=== PATIENT | female | born 1950 | race Caucasian/White ===

== ENCOUNTER → 2019-02-07 19:01 | Outpatient (CLI) | payer MEDICARE, OTHER ==
[~2019-02-07 19:01] MED LIST: ABILIFY10 MG PO; CELEBREX200 MG PO; COREG6.25 MG PO; CYCLOBENZAPRINE5 MG PO; CYMBALTA60 MG PO; DESMOPRESSIN A0.2 MG PO; FEXOFENADINE H180 MG PO; FLUTICASONE PRO16 GM NASAL; LISINOPRIL20 MG PO; PROTONIX40 MG PO; ROPINIROLE HCL0.5 MG PO; TRAZODONE HCL150 MG PO
[2019-03-06 07:44] VITALS: BMI 30.5
== END | disposition home or self-care (01) ==
LOC: D.LABREF 19:01
PROVIDERS: ATTEND Urology
DX: R31.9 Hematuria, unspecified (principal)

== ENCOUNTER → 2019-02-13 13:36 | Outpatient (CLI) | payer MEDICARE, OTHER ==
[2019-03-06 07:44] VITALS: BMI 30.5
== END | disposition home or self-care (01) ==
LOC: D.CT 13:36
PROVIDERS: ATTEND Urology
DX: R31.21 Asymptomatic microscopic hematuria (principal)

== ENCOUNTER 2019-03-06 07:10 | Day surgery (SDC) | payer MEDICARE, OTHER ==
[2019-03-05 11:20] LABS: HEMATOCRIT 38.8 % (36.0-48.0); HEMOGLOBIN 13.2 g/dL (12-16); MCH 30.7 pg (26.0-34.0); MCV 90.2 fL (80.0-100.0); MEAN PLATELET VOLUME 9.9 fL (7.4-10.4); RBC 4.3 10x6/uL (4.00-5.40); WBC 7.3 10x3/uL (4.8-10.8)
[~2019-03-06] VITALS: Ht 154.9 cm; Wt 73.0 kg
[2019-03-06 07:44] VITALS: BP 129/60; Ht 154.9 cm; Wt 73.0 kg
--- NOTE | 2019-03-06 11:45 | NUR ---
1130 UP TO BR VOIDS QS IV DC'D WITH CATH INTACT 1145 DC INSTS GIVEN VOICED UNDERSTANDING GETTING DRESSED.
--- NOTE | 2019-03-06 12:03 | OP ---
PATIENT NAME: CORNELIA WEBBER MEDICAL RECORD: [id number] :46 LOCATION:D.[facility] ADMISSION DATE: SURGEON: STEVEN MAJOR MD DATE OF OPERATION: 03/06/2019 SURGEON: Steven Major MD ANESTHESIA: TIVA by Aj English CRNA DIAGNOSES: Urge urinary incontinence, interstitial cystitis, microscopic hematuria. PROCEDURES: Cystoscopy, hydrodistention and intravesical Botox injection 100 units. FINDINGS: Vestibular tenderness. Trabeculated bladder without bladder tumors. Diffuse bladder inflammation with glomerulations. No bladder tumors. BLOOD LOSS: Minimal. CLINICAL HISTORY: This is a 68-year-old female with urge and stress urinary incontinence as well as microscopic hematuria. She tried Myrbetriq, which did not help. She had a CT scan of the abdomen and pelvis for hematuria and it did not show any abnormalities in the urinary system. Urine culture has shown mixed organisms. She required cystoscopy to complete the hematuria workup. As well she has symptoms of intractable urge incontinence and possibly interstitial cystitis. We will treat those conditions as we see them. SHE IS ALLERGIC TO PENICILLIN. She was given Levaquin IV helper steel fabrication to the OR. DESCRIPTION OF PROCEDURE: The patient was given IV sedation. She was placed in the lithotomy position and prepped and draped. A 21-Lao cystoscope was placed into the bladder. Even just touching the patient's periurethral area caused her to react strongly. Therefore, she had to be given more sedation in order to allow the scope to be placed. Going into the bladder, there are no bladder tumors seen. The bladder is trabeculated indicative of overactivity and possibly bladder outlet obstruction. No bladder tumors were seen. I decided to perform hydrodistention with 600 mL of bladder volume for at least 2 minutes. While this was being done, a significant amount of bladder bleeding was noted from glomerulations. At 10 different locations while the bladder was still distended, I injected 1 mL of Botox solution. Each milliliter of Botox solution has 10 units of Botox dissolved in it. The ureteral orifices and the trigone were spared. She has single ureteral orifices bilaterally. The bladder was then emptied through the scope and the scope was removed. I will see her in followup in 2 weeks' time to check on her response. TRANSINT:[id number] Voice Confirmation ID: [id number] DOCUMENT ID: [id number] OPERATIVE REPORT [id number] CORNELIA WEBBER ROBERT S MD at 1203 CC: [id number] DICTATION DATE: 03/06/19 1053 VEHICLE GLASS TECHNICIAN: 03/06/[address] [facility] 03/06/19 [place] [id number] [place] [id number]
== END 2019-03-06 11:50 | disposition home or self-care (01) ==
LOC: D.OPS 07:10 → D.PAN 10:05 → D.OPS 10:05 → D.PAN 10:40 → D.OPS 11:00
PROVIDERS: Anesthesiology; ATTEND Urology
DX: N39.41 Urge incontinence (principal); N30.10 Interstitial cystitis (chronic) without hematuria; R31.29 Other microscopic hematuria

== ENCOUNTER → 2019-03-21 17:58 | Outpatient (CLI) | payer MEDICARE, OTHER ==
[2019-03-06 07:44] VITALS: BMI 30.5
[2019-03-27 20:12] LABS: AEROBE ID Final report (()); RESULT 1 Aerococcus urinae (())
== END | disposition home or self-care (01) ==
LOC: D.LABREF 17:58
PROVIDERS: ATTEND Urology
DX: R82.90 Unspecified abnormal findings in urine (principal)

== ENCOUNTER 2019-05-04 14:01 | Emergency (ER) | payer MEDICARE, OTHER ==
[~2019-05-04] VITALS: Ht 154.9 cm; Wt 70.0 kg
[2019-05-04 14:09] VITALS: Ht 154.9 cm; Wt 70.0 kg
[2019-05-04 14:43] LABS: BASOPHILS 0.3 % (0-2); EOSINOPHILS 1.1 % (0-7); HEMATOCRIT 39.7 % (36.0-48.0); HEMOGLOBIN 14.3 g/dL (12-16); IMMATURE GRANULOCYTES 0.1 % (0-5); LYMPHOCYTES 18.6 % (15-50); MCH 31.4 pg (26.0-34.0); MCV 87.1 fL (80.0-100.0); MEAN PLATELET VOLUME 10.5 fL (7.4-10.4); MONOCYTES 14.6 % (2-11); NEUTROPHILS 65.3 % (40-80); PLATELET COUNT 179 10x3/uL (130-400); RBC 4.56 10x6/uL (4.00-5.40); RDW 13.9 % (11.5-14.5); WBC 7.3 10x3/uL (4.8-10.8)
[2019-05-04 14:56] LABS: APTT 25.8 SECONDS (22.8-39.4); INR 1.02 (0.85-1.17); PROTIME 12.9 SECONDS (11.6-15.0)
[2019-05-04 15:01] LABS: CALC OSMOLALITY 257 mosm/kg (275-300); CALCIUM 9.7 mg/dL (8.5-10.1); CARBON DIOXIDE 28.1 mmol/L (21.0-32.0); CHLORIDE - SERUM 91 mmol/L (98-107); CREATININE - SERUM 0.8 mg/dL (0.6-1.3); GLUCOSE 97 mg/dL (74-106); POTASSIUM - SERUM 3.9 mmol/L (3.5-5.1); SODIUM 129 mmol/L (136-145); UREA NITROGEN 11 mg/dL (7-18); eGFR NON AFRICAN AMERICAN 75 mL/min (90-120)
[2019-05-04] MEDS ORDERED: OXYBUTYNIN CHLOR5 M1 PO (15:04)
[2019-05-04] MEDS ORDERED: ALBUTEROL SULF8.5 GM INH (15:05)
[2019-05-04] MEDS ORDERED: ALENDRONATE SOD40 MG PO (15:06)
[2019-05-04] MEDS ORDERED: CIPRO500 MG PO (15:06)
[2019-05-04 15:17] LABS: ALBUMIN 4.1 g/dL (3.4-5.0); ALKALINE PHOSPHATASE 79 U/L (46-116); ALT (SGPT) 21 U/L (10-68); BILIRUBIN - TOTAL 0.76 mg/dL (0.2-1.3); CKMB 0.5 U/L (0.0-3.6); CREATINE KINASE 49 UL (21-215); MAGNESIUM - SERUM 1.8 mg/dL (1.8-2.4); PROTEIN - SERUM 7.7 g/dL (6.4-8.2)
[2019-05-04 15:21] LABS: TROPONIN-I < 0.017 ng/mL (0.000-0.060)
[2019-05-04 16:42] LABS: APPEARANCE CLEAR (CLEAR); BILIRUBIN NEGATIVE (NEGATIVE); COLOR YELLOW (YELLOW); GLUCOSE NEGATIVE (NEGATIVE); KETONE NEGATIVE (NEGATIVE); NITRITE NEGATIVE (NEGATIVE); PROTEIN NEGATIVE (NEGATIVE); UROBILINOGEN NORMAL (NORMAL)
[2019-05-04 16:46] LABS: BACTERIA MODERATE /hpf (NEGATIVE); RED CELLS - URINE 0-5 /hpf (0-5); YEAST >1+ /hpf (NONE SEEN)
[2019-05-04] MEDS ORDERED: SMZ-TMP DS 800-1 TAB PO (17:23)
[2019-05-04 18:22] VITALS: BP 125/58
== END 2019-05-04 18:23 | disposition home or self-care (01) ==
LOC: D.ER 14:01
PROVIDERS: Family Medicine
DX: N39.0 Urinary tract infection, site not specified (principal); I10 Essential (primary) hypertension; R42 Dizziness and giddiness; R53.1 Weakness

== ENCOUNTER 2020-07-10 10:07 | Inpatient (IN) | payer MEDICARE, OTHER ==
[2020-07-09 13:34] LABS: BILIRUBIN NEGATIVE (NEGATIVE); KETONE NEGATIVE (NEGATIVE); NITRITE POSITIVE (NEGATIVE)
[2020-07-09 13:38] LABS: BACTERIA MANY HPF (NONE SEEN); SQUAMOUS EPITHELIAL 0-5 HPF (0-4)
[2020-07-09 13:45] LABS: CALC OSMOLALITY 250 mosm/kg (275-300); CALCIUM 8.8 mg/dL (8.5-10.1); CARBON DIOXIDE 27.3 mmol/L (21.0-32.0); CHLORIDE - SERUM 93 mmol/L (98-107); CREATININE - SERUM 0.7 mg/dL (0.6-1.3); GLUCOSE 86 mg/dL (74-106); POTASSIUM - SERUM 4.2 mmol/L (3.5-5.1); SODIUM 125 mmol/L (136-145); UREA NITROGEN 12 mg/dL (7-18); eGFR NON AFRICAN AMERICAN 87 mL/min (90-120)
[2020-07-09 13:57] LABS: APTT 22.1 SECONDS (22.8-39.4); INR 1.1 (0.85-1.17); PROTIME 13.1 SECONDS (11.6-15.0)
[~2020-07-10] VITALS: Ht 154.9 cm; Wt 70.9 kg
--- NOTE | ~2020-07-10 | OP ---
PATIENT NAME: CORNELIA WEBBER MEDICAL RECORD: [id number] :46 LOCATION:D[facility] ADMISSION DATE:07/14/20 SURGEON: GWEN LOPEZ MD DATE OF OPERATION: 07/14/2020 PREOPERATIVE DIAGNOSIS: Osteoarthritis, left knee. POSTOPERATIVE DIAGNOSIS: Osteoarthritis, left knee. PROCEDURE PERFORMED: Left total knee arthroplasty. INDICATIONS FOR THE PROCEDURE: Ms. Webber is a 70-year-old female with history of left knee pain and arthritis. Her symptoms have been getting progressively worse and are beginning to affect her mobility. She has elected to proceed with the surgery for left total knee arthroplasty. Risks, benefits and alternatives of surgery were discussed with the patient and consent was obtained. DESCRIPTION OF PROCEDURE: The patient was met in the holding area where her identity and confirmation of the procedure was performed. Left lower extremity was marked. She was taken to the operating room where she was placed supine on the operating table and anesthesia was administered. A tourniquet was applied to the left thigh and the left leg was prepped and draped in a sterile fashion. The patient received preoperative antibiotics as well as TXA and a timeout was performed before initiating the case. On initiation of the case, the leg was exsanguinated and the tourniquet was raised. Total tourniquet time was 120 minutes. Medial parapatellar approach was utilized for our exposure. The knee was placed into flexion. Incision was made over the anterior aspect of the knee, dissected down to the extensor mechanism. The quad tendon was then split along its medial border curving medially around the patella, extending down the medial border of the patellar tendon. The knee was then taken into extension. Tissue from the posterior fat pad of the patella and over the anterior distal femur was excised. Flat tissue off the medial tibial plateau was elevated and a portion of the medial meniscus was excised. Patella was then everted. The knee was placed back into flexion. There was noted to be significant wear of the lateral femoral condyle with the grooves in the bone of the condyle and the tibial plateau. The Becker's line was marked and the cruciate ligaments were excised. We then drilled for our femoral tunnel and placed our intramedullary femoral guide. Distal femoral cutting block was then pinned into position. Our distal femur cut was completed and the femur was sized to a size 2. The 4-in-1 cutting block was attached and pinned into place. We then made our anterior, posterior and chamfer cuts and on removing the bone, the edges near the condyles, both medial and lateral, began to peel. We therefore elected to proceed with a stemmed implant. We reamed up sequentially to a size 16, placed a 100-mm stem femoral implant. Distal femur and 4-in-1 cuts were repeated using the revision guides. We then placed the trial for a box cut and our box cut was completed using a reciprocating saw. We then turned our attention to the tibia. The extramedullary guide was placed and adjusted for alignment. The cutting block was then pinned into position. We again checked our alignment. We were pleased with its positioning. Our tibial cut was then completed taking 2-mm off the lateral tibial plateau. The bony pieces were removed. The remainder of the medial and lateral menisci were also removed. We then sized our tibia to a size 3 and prepared it using a reamer and punch. A 12 x 100 mm cemented tibial stem was placed to provide extra stability as well. The tibia and femur were trialed and beginning at the size 11, going up to a size 13, at which point we had good fit and stability throughout range of motion. We then turned our attention to OPERATIVE REPORT [id number] WEBBER,CORNELIA the patella. Towel clips were placed at the superior and inferior poles and a caliper was used to measure the width of the patella. Then, the patella was then cut to the floor of the lateral facet. It was sized to a size 31 and drilled. Knee was repositioned in flexion and our trial components were removed. The laminar blending supervisor was then inserted. Osteophytes were removed from the posterior aspect of the distal femur. Knee was then irrigated thoroughly with saline. Joint solution was injected around the capsule, proximal tibia and the distal femur. The bony ends were then dried and our final components were cemented into place. Knee was held in flexion as our components were cemented and excess cement was removed throughout this process. Our trial poly was placed and the knee was placed into full extension while the cement was allowed to dry. The patella was held with the patellar clamp. Once the cement was dry, it was again taken through range of motion and felt to have good stability with the size 13 poly and our final size 13 posterior stabilized plus poly was inserted and tapped into position. It was again taken through range of motion and had good fit and stability. The knee was irrigated thoroughly with saline. A drain was placed in the lateral gutter. Extensor mechanism was then closed with #1 Vicryl suture. The subcutaneous tissues were closed with 2-0 Vicryl and the skin was closed with loan. A sterile dressing was placed. The patient was turned back over to anesthesia where she was awakened, extubated, and taken to recovery room in stable condition. POSTOPERATIVE PLAN: The patient is going to be admitted for routine postoperative care. She will receive 24 hours postoperative antibiotics and will be started on DVT prophylaxis tomorrow. Physical therapy will be consulted to assist with mobility, weightbearing as tolerated to left lower extremity. PLAN: Home with home health physical therapy. COMPLICATIONS: None. ESTIMATED BLOOD LOSS: 200 mL. ANESTHESIA: General with peripheral nerve block. TRANSINT:[id number] Voice Confirmation ID: [id number] DOCUMENT ID: [id number] GWEN LOPEZ MD CC: [id number] DICTATION DATE: 07/14/20 1143 BATTERY MECHANIC: 07/14/20 1531 ADM IN [place] [id number] [place] [id number]
[~2020-07-10 10:07] MED LIST changes: +ALBUTEROL SULF8.5 GM INH; +ALENDRONATE SOD40 MG PO; +CIPRO500 MG PO; +LEXAPRO5 MG PO; +OXYBUTYNIN CHLOR5 M1 PO; +SMZ-TMP DS 800-1 TAB PO; +ULTRAM50 MG PO
[2020-07-14 07:02] LABS: BASOPHILS 0.7 % (0-2); EOSINOPHILS 5.3 % (0-7); HEMATOCRIT 36.7 % (36.0-48.0); HEMOGLOBIN 13.4 g/dL (12-16); IMMATURE GRANULOCYTES 0.2 % (0-5); LYMPHOCYTES 31.6 % (15-50); MCH 30.4 pg (26.0-34.0); MCHC 36.5 g/dL (31.0-37.0); MCV 83.2 fL (80.0-100.0); MEAN PLATELET VOLUME 9.6 fL (7.4-10.4); MONOCYTES 13.6 % (2-11); NEUTROPHILS 48.6 % (40-80); PLATELET COUNT 128 10x3/uL (130-400); RBC 4.41 10x6/uL (4.00-5.40); RDW 12.3 % (11.5-14.5); WBC 4.1 10x3/uL (4.8-10.8)
[2020-07-14 07:08] VITALS: BP 155/64; BMI 28.4
[2020-07-14] MEDS ORDERED: BACTRIM 400-801 TAB PO (07:16)
[2020-07-14 07:44] LABS: BILIRUBIN NEGATIVE (NEGATIVE); KETONE NEGATIVE (NEGATIVE); NITRITE NEGATIVE (NEGATIVE)
[2020-07-14 12:06] VITALS: BP 105/78
--- NOTE | 2020-07-14 12:30 | NUR ---
PT ARIIVED TO FLOOR VIA BED, SPOUSE AT BEDSIDE, PT VERY SLEEPY, VITALS WNL, PEDAL PULSES PRESENT, MOVEMENT IN BILATERAL EXTREMITIES SLIGHTLY WEAKER ON THE RIGHT SIDE
--- NOTE | 2020-07-14 15:03 | NUR ---
PT RESTING COMFORTABLY, NO SIGNS OF DISTRESS, PEDAL PULSES HAVE REMAINED INTACT, SCD'S IN PLACE AND RUNNING, REQUESTED PT TO BRING UP AN CPM MACHINE
[2020-07-14 16:51] VITALS: BP 131/68
[2020-07-14 21:33] VITALS: BP 111/54
[2020-07-15 04:10] VITALS: BP 118/45; BMI 29.5
[2020-07-15 05:15] VITALS: BP 154/67
[2020-07-15 05:54] LABS: BASOPHILS 0 % (0-2); EOSINOPHILS 0 % (0-7); HEMATOCRIT 29.5 % (36.0-48.0); IMMATURE GRANULOCYTES 0.4 % (0-5); LYMPHOCYTE ABS# 0.96 10x3/uL (1.18-3.74); MCH 29.8 pg (26.0-34.0); MCHC 35.6 g/dL (31.0-37.0); MCV 83.8 fL (80.0-100.0); MEAN PLATELET VOLUME 9.7 fL (7.4-10.4); NEUTROPHIL ABS# 9.83 10x3/uL (1.56-6.13); NEUTROPHILS 81.6 % (40-80); PLATELET COUNT 151 10x3/uL (130-400); RDW 12.4 % (11.5-14.5)
[2020-07-15 06:08] LABS: ALBUMIN 3.3 g/dL (3.4-5.0); ANION GAP 10.3 mmol/L (8-16); BILIRUBIN - TOTAL 0.8 mg/dL (0.2-1.3); CARBON DIOXIDE 23.4 mmol/L (21.0-32.0); CREATININE - SERUM 1.1 mg/dL (0.6-1.3); POTASSIUM - SERUM 4.7 mmol/L (3.5-5.1); PROTEIN - SERUM 5.9 g/dL (6.4-8.2)
[2020-07-15 06:21] LABS: HEMOGLOBIN 10.5 g/dL (12-16); RBC 3.52 10x6/uL (4.00-5.40); WBC 12.1 10x3/uL (4.8-10.8)
--- NOTE | 2020-07-15 07:23 | NUR ---
Patient had a critical NA of 117 notified Alan Yusuf and he ordered normal saline at 100ml/hr, fluid restriction of 1200ml and no free water.
[2020-07-15 07:43] VITALS: BP 170/62
--- NOTE | 2020-07-15 10:43 | NUR ---
Patient Name: CORNELIA WEBBER Admission Status: Elective Accout number: [id number] Admission Date: 07-14-2020 : 1950 Admission Diagnosis: Attending: TRAV Current LOS: 1 Anticipated DC Date: Planned Disposition: Home with Home Health Primary Insurance: MEDICARE A & B Discharge Planning Comments: CM met with patient to complete initial dc planning assessment. CM educated patient on the CM role and verbal consent given by patient to complete assessment. Patient lives at home with her where she states she is independent with his care. At discharge patient plans to return home and feels this is a safe discharge. She has stairs at home, but will not use them. CM discussed availability of home health, rehab services, and medical equipment. She will need home health at home & does not care who we she uses. She will also need a walker and BSC when she is discharged. FELICITAS signed and placed on chart. IMM also signed and went over. I will order the DME from [facility] & contact to see who can accept this patient. Patient denied known discharge needs at this time. CM will continue to follow and will assist as needed with dc plans/needs Development Mgr: Delia Nunez
[2020-07-15 12:35] VITALS: BP 168/84
[2020-07-15 14:21] VITALS: Ht 154.9 cm; Wt 70.9 kg
[2020-07-15 14:40] LABS: ANION GAP 12.8 mmol/L (8-16); CALCIUM 7.8 mg/dL (8.5-10.1); CARBON DIOXIDE 22.8 mmol/L (21.0-32.0); POTASSIUM - SERUM 4.6 mmol/L (3.5-5.1)
[2020-07-15 14:44] LABS: CREATININE - SERUM 1.4 mg/dL (0.6-1.3)
[2020-07-15 15:00] VITALS: BP 105/60
[2020-07-15 17:46] LABS: INR 1.35 (0.85-1.17); PROTIME 15.5 SECONDS (11.6-15.0)
[2020-07-15 21:11] VITALS: BP 173/65
[2020-07-15 22:52] LABS: POTASSIUM - URINE 32.2 MMOL/L (12.0-62.0)
[2020-07-16 04:37] VITALS: BP 186/82
[2020-07-16 05:35] LABS: HEMATOCRIT 25.4 % (36.0-48.0); HEMOGLOBIN 8.9 g/dL (12-16); LYMPHOCYTES 9.1 % (15-50); MCH 29.9 pg (26.0-34.0); MCV 85.2 fL (80.0-100.0); MEAN PLATELET VOLUME 10.1 fL (7.4-10.4); NEUTROPHILS 80.9 % (40-80); RBC 2.98 10x6/uL (4.00-5.40); RDW 12.5 % (11.5-14.5)
[2020-07-16 05:36] LABS: PLATELET COUNT 103 10x3/uL (130-400); WBC 7.3 10x3/uL (4.8-10.8)
[2020-07-16 05:51] LABS: BILIRUBIN - TOTAL 0.67 mg/dL (0.2-1.3); CALCIUM 7.9 mg/dL (8.5-10.1); CARBON DIOXIDE 23.7 mmol/L (21.0-32.0); POTASSIUM - SERUM 4.2 mmol/L (3.5-5.1); PROTEIN - SERUM 5.7 g/dL (6.4-8.2)
[2020-07-16 05:54] LABS: CREATININE - SERUM 0.8 mg/dL (0.6-1.3)
[2020-07-16 05:55] LABS: ANION GAP 9.5 mmol/L (8-16)
--- NOTE | 2020-07-16 06:02 | NUR ---
Patient had pain managed with the prescribed pain medications, she did urinate small amounts at a time this shift. Lab called a critical NA of 117 which is the same as yesterday, no call made to the doctor due to no change.
[2020-07-16 07:47] VITALS: BP 171/51
[2020-07-16 12:25] VITALS: BP 152/58
[2020-07-16 17:05] VITALS: BP 109/64
[2020-07-16 20:59] VITALS: BP 140/53
[2020-07-17] VITALS: BP 142/61
[2020-07-17 04:00] VITALS: BP 124/50
[2020-07-17 06:55] LABS: ALBUMIN 2.8 g/dL (3.4-5.0); ALKALINE PHOSPHATASE 74 U/L (30-120); BILIRUBIN - TOTAL 0.61 mg/dL (0.2-1.3); CALCIUM 7.4 mg/dL (8.5-10.1); CARBON DIOXIDE 25.2 mmol/L (21.0-32.0); CHLORIDE - SERUM 88 mmol/L (98-107); CREATININE - SERUM 0.7 mg/dL (0.6-1.3); GLUCOSE 121 mg/dL (74-106); SODIUM 122 mmol/L (136-145); eGFR NON AFRICAN AMERICAN 87 mL/min (90-120)
[2020-07-17 07:00] LABS: CALC OSMOLALITY 245 mosm/kg (275-300); POTASSIUM - SERUM 3.5 mmol/L (3.5-5.1); UREA NITROGEN 10 mg/dL (7-18)
[2020-07-17 07:01] LABS: ALT (SGPT) 43 U/L (10-68)
--- NOTE | 2020-07-17 07:07 | NUR ---
PATIENTS PAIN WAS MANAGED EITH THE PRESCRIBED PAIN MEDICATIONS, A PRESLEY WAS PLACED, SHE TOLERATED IT WELL.
[2020-07-17 07:17] LABS: BASOPHILS 0.2 % (0-2); EOSINOPHILS 1.6 % (0-7); HEMOGLOBIN 7.8 g/dL (12-16); IMMATURE GRANULOCYTES 0.3 % (0-5); LYMPHOCYTE ABS# 1.04 10x3/uL (1.18-3.74); LYMPHOCYTES 16.4 % (15-50); MCH 30.1 pg (26.0-34.0); MCHC 35.5 g/dL (31.0-37.0); MCV 84.9 fL (80.0-100.0); MEAN PLATELET VOLUME 9.9 fL (7.4-10.4); NEUTROPHILS 72.5 % (40-80); PLATELET COUNT 101 10x3/uL (130-400); RBC 2.59 10x6/uL (4.00-5.40); RDW 12.5 % (11.5-14.5); WBC 6.3 10x3/uL (4.8-10.8)
--- NOTE | 2020-07-17 07:24 | NUR ---
transfer notes over that did not transfer Patient Name: CORNELIA WEBBER Admission Status: Elective Accout number: [id number] Admission Date: 07-14-2020 : 1950 Admission Diagnosis: Attending: TRAV Current LOS: 1 Anticipated DC Date: Planned Disposition: Home with Home Health Primary Insurance: MEDICARE A & B Discharge Planning Comments: CM met with patient to complete initial dc planning assessment. CM educated patient on the CM role and verbal consent given by patient to complete assessment. Patient lives at home with her where she states she is independent with his care. At discharge patient plans to return home and feels this is a safe discharge. She has stairs at home, but will not use them. CM discussed availability of home health, rehab services, and medical equipment. She will need home health at home & does not care who we she uses. She will also need a walker and BSC when she is discharged. FELICITAS signed and placed on chart. IMM also signed and went over. I will order the DME from [facility] & contact to see who can accept this patient. Patient denied known discharge needs at this time. CM will continue to follow and will assist as needed with dc plans/needs Program Technician: Delia Nunez
--- NOTE | 2020-07-17 07:25 | NUR ---
Per Dr Bishop/ Shira patient would like to go to [facility] inpatient rehab when able referral was put in on 07/16/20
--- NOTE | 2020-07-17 07:47 | NUR ---
ALERT AND ORIENTED. ASSESSMENT COMPLETE. BED LOW. BED ALARM ON. CALL [place]IN AND PERSONAL ITEMS IN REACH. WILL CONTINUE TO MONITOR.
[2020-07-17 08:16] VITALS: BP 111/45
--- NOTE | 2020-07-17 08:38 | NUR ---
CPM TAKEN OFF. EDUCATION PROVIDED ON SCDS AND SCDS PLACED ON PATIENT.
[2020-07-17 09:13] LABS: HEPATITIS C ANTIBODY <0.1 S/CO RAT (0.0-0.9)
--- NOTE | 2020-07-17 09:38 | NUR ---
REHAB PRESCREENING Rehab referral received and chart reviewed. Ms. Paz is a good candidate for acute inpatient rehab if she is willing to come. She will be accepted and can admit when her physicians feel she is appropriate for discharge. Thank you for this referral! Joselyn Jenkins, RACK MAKER Rehab PD
--- NOTE | 2020-07-17 12:00 | MORECARE ---
CASE MANAGEMENT DISCHARGE SUMMARY PATIENT: CORNELIA WEBBER UNIT: [id number] ADM DATE: 07/14/20 AGE: 70 : 48 SEX: F ROOM/BED: D.2202 AUTHOR: HUSSAIN,DOC PHYSICIAN: REFERRING PHYSICIAN: GWEN BISHOP MD DATE OF SERVICE: 07/17/20 Case Management Discharge Planning Summary COMMENTS ENTERED DATE: 07/17/20 7:25 CT COMMENT TYPE: Discharge Planning REVIEWER: Delia Nunez Per Dr Bishop/ Shira patient would like to go to [facility] inpatient rehab when able referral was put in on 07/16/20 ENTERED DATE: 07/17/20 7:24 CT COMMENT TYPE: Discharge Planning REVIEWER: Delia Nunez Patient Name: CORENLIA WEBBER Admission Status: Elective Accout number: [id number] Admission Date: 07-14-2020 : 1950 Admission Diagnosis: Attending: TRAV Current LOS: 1 Anticipated DC Date: Planned Disposition: Home with Home Health Primary Insurance: MEDICARE A & B Discharge Planning Comments: CM met with patient to complete initial dc planning assessment. CM educated patient on the CM role and verbal consent given by patient to complete assessment. Patient lives at home with her where she states she is independent with his care. At discharge patient plans to return home and feels this is a safe discharge. She has stairs at home, but will not use them. CM discussed availability of home health, rehab services, and medical equipment. She will need home health at home & does not care who we she uses. She will also need a walker and BSC when she is discharged. FELICITAS signed and placed on chart. IMM also signed and went over. I will order the DME from [facility] & contact to see who can accept this patient. Patient denied known discharge needs at this time. CM will continue to follow and will assist as needed with dc plans/needs Assistant Professor Of Economics: Delia Nunez DCP REVIEW SUMMARY ANTICIPATED D/C DATE: EXPECTED LOS : CASE STATUS: DCP Initiated INITIAL REVIEW: 07/15/2020 INITIAL REVIEWER: Delia Nunez FINAL DISCHARGE DISPOSITION: : FINAL REVIEWER: FINAL REVIEW DATE: DCP Focus Questions & Answers - Added on: QUESTION: ANSWER : PROVIDER NETWORKING REVIEW DATE: 07/16/2020 SERVICE TYPE: Home Health Care (Non-Skilled) REVIEWER: Delia Nunez PROVIDER: FINAL PROVIDER? : FINAL DATE/TIME: CT PATIENT: CORNELIA WEBBER ENCOUNTER: [id number] MEDICAL RECORD#: [id number] ADMISSION DATE: 07/14/2020 DISCHARGE DATE: ATTENDING MD: CHERRI: AGE: 70 MARITAL STATUS: M DC PLAN ID: [id number] FACILITY: [facility] PRINTED ON: 07/17/20 12:00 CT All edits/amendments must be made on the electronic document DICTATION DATE: 07/17/201199 CIVIL RIGHTS INVESTIGATOR: TANIA 07/17/20 1200 RPT#: [id number] DC DATE: STATUS: ADM IN [facility] [address] [place] [address] END OF REPORT
[2020-07-17 13:11] VITALS: BP 95/43
[2020-07-17] MEDS ORDERED: THERMOTABS 1 GM1 GM PO (14:06)
[2020-07-17] MEDS ORDERED: COLACE100 MG PO (14:06)
[2020-07-17] MEDS ORDERED: HYDROCODONE-AC1 EAC2 PO ×2 (14:06)
[2020-07-17] MEDS ORDERED: PHENERGAN IM (14:06)
[2020-07-17] MEDS ORDERED: ELIQUIS2.5 MG PO (14:06)
--- NOTE | 2020-07-17 14:57 | NUR ---
DC EDUCATION PROVIDED WRITTEN AND VERBAL. VERBALIZED UNDERSTANDING. DENIES FURTHER QUESTIONS. IV REMOVED FROM RIGHT WRIST WITH TIP INTACT. REPORT CALLED TO REHAB. PATIENT DC TO REHAB WITH ALL BELONGINGS.
--- NOTE | 2020-07-17 17:09 | NUR ---
OT NOTE: PT COMPLETED BUE AROM EXERCISES TOLERATED. PT COMPLETED BED MOB TASKS WITH MASOOD Carlson. PT COMPLETED BRIDGING WITH SBA. 105-135 THANK YOU,TORY ROBBINS
--- NOTE | 2020-07-17 18:40 | MORECARE ---
CASE MANAGEMENT DISCHARGE SUMMARY PATIENT: CORNELIA WEBBER UNIT: [id number] ADM DATE: 07/14/20 AGE: 70 : 48 SEX: F ROOM/BED: D.2202 AUTHOR: HUSSAIN,DOC PHYSICIAN: REFERRING PHYSICIAN: GWEN BISHOP MD DATE OF SERVICE: 07/17/20 Case Management Discharge Planning Summary COMMENTS ENTERED DATE: 07/17/20 18:35 CT COMMENT TYPE: Discharge Planning REVIEWER: Delia Nunez PATIENT WAS DC TO INPATIENT REHAB AT [facility] TODAY ENTERED DATE: 07/17/20 7:25 CT COMMENT TYPE: Discharge Planning REVIEWER: Delia Nunez Per Dr Bishop/ Shira patient would like to go to [facility] inpatient rehab when able referral was put in on 07/16/20 ENTERED DATE: 07/17/20 7:24 CT COMMENT TYPE: Discharge Planning REVIEWER: Delia Nunez Patient Name: CORNELIA WEBBER Admission Status: Elective Accout number: [id number] Admission Date: 07-14-2020 : 1950 Admission Diagnosis: Attending: TRAV Current LOS: 1 Anticipated DC Date: Planned Disposition: Home with Home Health Primary Insurance: MEDICARE A & B Discharge Planning Comments: CM met with patient to complete initial dc planning assessment. CM educated patient on the CM role and verbal consent given by patient to complete assessment. Patient lives at home with her where she states she is independent with his care. At discharge patient plans to return home and feels this is a safe discharge. She has stairs at home, but will not use them. CM discussed availability of home health, rehab services, and medical equipment. She will need home health at home & does not care who we she uses. She will also need a walker and BSC when she is discharged. FELICITAS signed and placed on chart. IMM also signed and went over. I will order the DME from [facility] & contact to see who can accept this patient. Patient denied known discharge needs at this time. CM will continue to follow and will assist as needed with dc plans/needs Statement Services Representative: Delia Nunez DCP REVIEW SUMMARY ANTICIPATED D/C DATE: EXPECTED LOS : CASE STATUS: DCP Initiated INITIAL REVIEW: 07/15/2020 INITIAL REVIEWER: Delia Nunez FINAL DISCHARGE DISPOSITION: : FINAL REVIEWER: FINAL REVIEW DATE: DCP Focus Questions & Answers - Added on: QUESTION: ANSWER : PROVIDER NETWORKING REVIEW DATE: 07/16/2020 SERVICE TYPE: Home Health Care (Non-Skilled) REVIEWER: Delia Nunez PROVIDER: FINAL PROVIDER? : FINAL DATE/TIME: CT PATIENT: CORNELIA WEBBER ENCOUNTER: [id number] MEDICAL RECORD#: [id number] ADMISSION DATE: 07/14/2020 DISCHARGE DATE: 07/17/2020 ATTENDING MD: CHERRI: [id number] AGE: 70 MARITAL STATUS: M DC PLAN ID: [id number] FACILITY: [facility] PRINTED ON: 07/17/20 18:39 CT All edits/amendments must be made on the electronic document DICTATION DATE: 07/17/201838 ABATTOIR SUPERVISOR: DM 07/17/201838 RPT#: [id number] DC DATE:07/17/20 STATUS: DIS IN [facility] [address] [place] [address] END OF REPORT
--- NOTE | 2020-07-18 08:29 | MORECARE ---
CASE MANAGEMENT DISCHARGE SUMMARY PATIENT: CORNELIA WEBBER UNIT: [id number] ADM DATE: 07/14/20 AGE: 70 : 48 SEX: F ROOM/BED: D.2202 AUTHOR: HUSSAIN,DOC PHYSICIAN: REFERRING PHYSICIAN: GWEN BISHOP MD DATE OF SERVICE: 07/18/20 Case Management Discharge Planning Summary COMMENTS ENTERED DATE: 07/17/20 18:35 CT COMMENT TYPE: Discharge Planning REVIEWER: Delia Nunez PATIENT WAS DC TO INPATIENT REHAB AT [facility] TODAY ENTERED DATE: 07/17/20 7:25 CT COMMENT TYPE: Discharge Planning REVIEWER: Delia Nunez Per Dr Bishop/ Shira patient would like to go to [facility] inpatient rehab when able referral was put in on 07/16/20 ENTERED DATE: 07/17/20 7:24 CT COMMENT TYPE: Discharge Planning REVIEWER: Delia Nunez Patient Name: CORNELIA WEBBER Admission Status: Elective Accout number: [id number] Admission Date: 07-14-2020 : 1950 Admission Diagnosis: Attending: TRAV Current LOS: 1 Anticipated DC Date: Planned Disposition: Home with Home Health Primary Insurance: MEDICARE A & B Discharge Planning Comments: CM met with patient to complete initial dc planning assessment. CM educated patient on the CM role and verbal consent given by patient to complete assessment. Patient lives at home with her where she states she is independent with his care. At discharge patient plans to return home and feels this is a safe discharge. She has stairs at home, but will not use them. CM discussed availability of home health, rehab services, and medical equipment. She will need home health at home & does not care who we she uses. She will also need a walker and BSC when she is discharged. FELICITAS signed and placed on chart. IMM also signed and went over. I will order the DME from [facility] & contact to see who can accept this patient. Patient denied known discharge needs at this time. CM will continue to follow and will assist as needed with dc plans/needs Electrical/Instrument Technician: Delia Nunez DCP REVIEW SUMMARY ANTICIPATED D/C DATE: EXPECTED LOS : CASE STATUS: DCP Initiated INITIAL REVIEW: 07/15/2020 INITIAL REVIEWER: Delia Nunez FINAL DISCHARGE DISPOSITION: : FINAL REVIEWER: FINAL REVIEW DATE: DCP Focus Questions & Answers - Added on: QUESTION: ANSWER : PROVIDER NETWORKING REVIEW DATE: 07/16/2020 SERVICE TYPE: Home Health Care (Non-Skilled) REVIEWER: Delia Nunez PROVIDER: FINAL PROVIDER? : FINAL DATE/TIME: CT PATIENT: CORNELIA WEBBER ENCOUNTER: [id number] MEDICAL RECORD#: [id number] ADMISSION DATE: 07/14/2020 DISCHARGE DATE: 07/17/2020 ATTENDING MD: CHERRI: AGE: 70 MARITAL STATUS: M DC PLAN ID: [id number] FACILITY: [facility] PRINTED ON: 07/18/20 8:29 CT All edits/amendments must be made on the electronic document DICTATION DATE: 07/18/20828 EXECUTIVE VICE PRESIDENT AND CHIEF OPERATING OFFICER: DM 07/18/20828 RPT#: [id number] DC DATE:07/17/20 STATUS: DIS IN [facility] [address] [place] [address] END OF REPORT
--- NOTE | 2020-07-18 10:36 | MORECARE ---
CASE MANAGEMENT DISCHARGE SUMMARY PATIENT: CORNELIA WEBBER UNIT: [id number] ADM DATE: 07/14/20 AGE: 70 : 48 SEX: F ROOM/BED: D.2202 AUTHOR: HUSSAIN,DOC PHYSICIAN: REFERRING PHYSICIAN: GWEN BISHOP MD DATE OF SERVICE: 07/18/20 Case Management Discharge Planning Summary COMMENTS ENTERED DATE: 07/17/20 18:35 CT COMMENT TYPE: Discharge Planning REVIEWER: Delia Nunez PATIENT WAS DC TO INPATIENT REHAB AT [facility] TODAY ENTERED DATE: 07/17/20 7:25 CT COMMENT TYPE: Discharge Planning REVIEWER: Delia Nunez Per Dr Bishop/ Shira patient would like to go to [facility] inpatient rehab when able referral was put in on 07/16/20 ENTERED DATE: 07/17/20 7:24 CT COMMENT TYPE: Discharge Planning REVIEWER: Delia Nunez Patient Name: CORNELIA WEBBER Admission Status: Elective Accout number: [id number] Admission Date: 07-14-2020 : 1950 Admission Diagnosis: Attending: TRAV Current LOS: 1 Anticipated DC Date: Planned Disposition: Home with Home Health Primary Insurance: MEDICARE A & B Discharge Planning Comments: CM met with patient to complete initial dc planning assessment. CM educated patient on the CM role and verbal consent given by patient to complete assessment. Patient lives at home with her where she states she is independent with his care. At discharge patient plans to return home and feels this is a safe discharge. She has stairs at home, but will not use them. CM discussed availability of home health, rehab services, and medical equipment. She will need home health at home & does not care who we she uses. She will also need a walker and BSC when she is discharged. FELICITAS signed and placed on chart. IMM also signed and went over. I will order the DME from [facility] & contact to see who can accept this patient. Patient denied known discharge needs at this time. CM will continue to follow and will assist as needed with dc plans/needs Sewing Department Supervisor: Delia Nunez DCP REVIEW SUMMARY ANTICIPATED D/C DATE: EXPECTED LOS : CASE STATUS: DCP Initiated INITIAL REVIEW: 07/15/2020 INITIAL REVIEWER: Delia Nunez FINAL DISCHARGE DISPOSITION: : FINAL REVIEWER: FINAL REVIEW DATE: DCP Focus Questions & Answers - Added on: QUESTION: ANSWER : PROVIDER NETWORKING REVIEW DATE: 07/16/2020 SERVICE TYPE: Home Health Care (Non-Skilled) REVIEWER: Delia Nunez PROVIDER: FINAL PROVIDER? : FINAL DATE/TIME: CT PATIENT: CORNELIA WEBBER ENCOUNTER: [id number] MEDICAL RECORD#: [id number] ADMISSION DATE: 07/14/2020 DISCHARGE DATE: 07/17/2020 ATTENDING MD: CHERRI: AGE: 70 MARITAL STATUS: M DC PLAN ID: [id number] FACILITY: [facility] PRINTED ON: 07/18/20 10:36 CT All edits/amendments must be made on the electronic document DICTATION DATE: 07/18/20 103 MOTOR EQUIPMENT CAPTAIN: DM 07/18/20 1036 RPT#: [id number] DC DATE:07/17/20 STATUS: DIS IN [facility] [address] [place] [id number] END OF REPORT
== END 2020-07-17 15:10 | DRG 470 ==
LOC: D.MS 07-14 06:15 → D.SDCHOLD 07-14 06:15 → D.OPS 07-14 07:30 → D.MS 07-14 07:30 → EDSTATUS 07-14 07:30 → D.MS 07-14 08:15
PROVIDERS: Family Medicine; Internal Medicine; ADMIT Orthopaedic Surgery; ATTEND Orthopaedic Surgery
PROC: 0SRD0JZ Replacement of Left Knee Joint with Synthetic Substitute, Open Approach (ICD-10-PCS; principal; 2020-07-14 08:15)
DX: M17.12 Unilateral primary osteoarthritis, left knee (principal); E87.1 Hypo-osmolality and hyponatremia; N39.0 Urinary tract infection, site not specified; I10 Essential (primary) hypertension; G25.81 Restless legs syndrome; K21.9 Gastro-esophageal reflux disease without esophagitis; F41.9 Anxiety disorder, unspecified; F32.9 Major depressive disorder, single episode, unspecified; J30.2 Other seasonal allergic rhinitis; D64.9 Anemia, unspecified

== ENCOUNTER 2020-07-17 15:06 | Inpatient (IN) | payer MEDICARE, OTHER ==
[~2020-07-17] VITALS: Ht 154.9 cm; Wt 70.8 kg
[~2020-07-17 15:06] MED LIST changes: +BACTRIM 400-801 TAB PO; +COLACE100 MG PO; +ELIQUIS2.5 MG PO; +HYDROCODONE-AC1 EAC2 PO; +PHENERGAN IM; +THERMOTABS 1 GM1 GM PO
[2020-07-17 16:11] VITALS: BP 116/49; BMI 29.5
--- NOTE | 2020-07-17 18:42 | NUR ---
BEDSIDE REPORT COMPLETE. RECEIVED PT SITTING UP IN BED AWAKE. ALERT AND ORIENTED X4. C/O HEADACHE 5/10 THROBBING PAIN. NO OTHER AREAS OF PAIN VOICED. LEFT KNEE DRESSING NOT COMPLETELY INTACT, ROLLING AT TOP AND BOTTOM. DRAINAGE NOTED ON DRESSING, AREA IS MARKED WITH BLACK MARKER AND DRAINAGE HAS NOT EXCEEDED MARKED PERIAMETER. MERT HOSE ON BLE. PRESLEY CATH PATENT FREE FROM KINKS. SELVIN COLOR URINE IN COLLECTION BAG. NO IV OR OXYGEN NOTED. DENIES ANY NEEDS. VS STABLE. CALL LIGHT WITHIN REACH. JANNY ALARM ON. CPOC
[2020-07-17 19:58] VITALS: BP 121/49
--- NOTE | 2020-07-18 00:40 | NUR ---
PT LYING IN BED SUPINE EYES CLOSED RESTING. HOB ELEVATED. RR EVEN AND UNLABORED. UA COLLECTED. CALL LIGHT WITHIN REACH.
[2020-07-18 01:28] LABS: BILIRUBIN NEGATIVE (NEGATIVE); KETONE NEGATIVE (NEGATIVE); NITRITE NEGATIVE (NEGATIVE); UROBILINOGEN NORMAL mg/dL (< 2)
[2020-07-18 01:29] LABS: BACTERIA FEW HPF (NONE SEEN); SQUAMOUS EPITHELIAL 0-5 HPF (0-4); WHITE CELLS - URINE NONE SEEN HPF (0-4)
--- NOTE | 2020-07-18 03:05 | NUR ---
PT LYING IN BED ON LEFT SIDE EYES CLOSED RESTING. RR EVEN AND UNLABORED. CALL LIGHT WITHIN REACH.
--- NOTE | 2020-07-18 05:25 | NUR ---
PT LYING IN BED ON LEFT SIDE AWAKE. DENIES ANY NEEDS OR PAIN. NO ACUTE CHANGES IN CONDITION THIS SHIFT. 900ML SELVIN URINE EMPTIED FROM PRESLEY. CALL LIGHT WITHIN REACH. JANNY ALARM ON.
[2020-07-18 05:48] LABS: BASOPHILS 0.2 % (0-2); EOSINOPHILS 2.9 % (0-7); HEMATOCRIT 20.7 % (36.0-48.0); IMMATURE GRANULOCYTES 0.2 % (0-5); LYMPHOCYTE ABS# 0.98 10x3/uL (1.18-3.74); LYMPHOCYTES 19.2 % (15-50); MCH 29.4 pg (26.0-34.0); MCHC 34.8 g/dL (31.0-37.0); MCV 84.5 fL (80.0-100.0); MEAN PLATELET VOLUME 9.3 fL (7.4-10.4); MONOCYTES 10.2 % (2-11); NEUTROPHIL ABS# 3.43 10x3/uL (1.56-6.13); NEUTROPHILS 67.3 % (40-80); PLATELET COUNT 119 10x3/uL (130-400); RBC 2.45 10x6/uL (4.00-5.40); RDW 12.4 % (11.5-14.5); WBC 5.1 10x3/uL (4.8-10.8)
[2020-07-18 06:09] LABS: HEMOGLOBIN 7.2 g/dL (12-16)
--- NOTE | 2020-07-18 06:09 | NUR ---
LULU TEAGUE TECH CALLED CRITICAL HGB 7.2 READ BACK AND VERIFIED
[2020-07-18 06:15] LABS: CALCIUM 7.8 mg/dL (8.5-10.1); CARBON DIOXIDE 28.2 mmol/L (21.0-32.0); POTASSIUM - SERUM 3.2 mmol/L (3.5-5.1)
[2020-07-18 08:00] VITALS: BP 141/72
--- NOTE | 2020-07-18 10:12 | NUR ---
PATIENT ADMITTED TO REHAB FROM ACUTE FLOOR. HER PCP IS DR. GONZALEZ. SHE HAS NO DME AT THIS TIME. DISCHARGE PLANS ARE FOR HER TO RETURN HOME WITH FAMILY. WILL CONTINUE TO FOLLOW WITH PATIENT.
[2020-07-18 16:02] VITALS: Ht 154.9 cm; Wt 70.8 kg
--- NOTE | 2020-07-18 16:16 | NUR ---
DR GARCÍA ROUNDED AND GAVE INSTRUCTIONS TO START BLADDER TRAINING ON Tuesday07/20/20. PT HAS 2 UNITS OF BLOOD ORDERED BUT NURSE WAS UNABLE TO GET IV STARTED, ICU NURSE ATTEMPTED AND WAS UNABLE TO GET IV STARTED. DR WILDE CONSULTED FOR POSSIBLE CENTRAL LINE PER DR BANG.
--- NOTE | 2020-07-18 19:20 | NUR ---
AWAKE AND ALERT. RESTING IN BED WITH NO DISTRESS NOTED. DR ANDERSON HERE FOR CENTRAL LINE PLACEMENT FOR TRANSFUSION OF PRBC. TOLERATED PROCEDURE WELL. CENTRAL LINE IN PLACE TO RIGHT NECK. CONFIRMED PLACEMENT VIA XRAY. IN CONTACT ISOLATION FOR ESBL OF URINE. PRESLEY PATENT. FREDERICK AND DRESSING INTACT TO LEFT KNEE. BILATERAL HEELS ELEVATED ON PILLOWS. CALL LIGHT IN REACH.
[2020-07-18 20:03] VITALS: BP 106/48
--- NOTE | 2020-07-18 20:55 | NUR ---
FIRST UNIT PRBC INITIATED. SIGNS AND SYMPTOMS OF ADVERSE REACTION REVIEWED WITH PATIENT. VOICES UNDERSTANDING.
--- NOTE | 2020-07-18 23:35 | NUR ---
VOLTARIN GEL APPLIED TO BILATERAL HEELS FOR PAIN RELIEF. HEELS FLOATED ON PILLOWS.
--- NOTE | 2020-07-19 00:05 | NUR ---
SECOND UNIT OF PRBC STARTED. REVIEWED SIGNS OF ADVERSE REACTION.
--- NOTE | 2020-07-19 03:00 | NUR ---
SECOND UNIT OF PRBC COMPLETE. NO SIGNS OR SYMPTOMS OF ADVERSE REACTION. RIGHT CENTRAL LINE INTACT. NO DISTRESS NOTED.
--- NOTE | 2020-07-19 05:28 | NUR ---
AWAKE AND ALERT. CENTRAL LINE INTACT. PLACED ON CPM. CALL LIGHT IN REACH.
[2020-07-19 05:31] LABS: BASOPHILS 0.3 % (0-2); EOSINOPHILS 2.1 % (0-7); IMMATURE GRANULOCYTES 0.3 % (0-5); LYMPHOCYTE ABS# 1.04 10x3/uL (1.18-3.74); LYMPHOCYTES 16.6 % (15-50); MCH 30.3 pg (26.0-34.0); MCHC 35.4 g/dL (31.0-37.0); MCV 85.6 fL (80.0-100.0); MEAN PLATELET VOLUME 9.3 fL (7.4-10.4); MONOCYTES 11.6 % (2-11); NEUTROPHIL ABS# 4.34 10x3/uL (1.56-6.13); NEUTROPHILS 69.1 % (40-80); PLATELET COUNT 138 10x3/uL (130-400); RDW 12.6 % (11.5-14.5); WBC 6.3 10x3/uL (4.8-10.8)
[2020-07-19 05:33] LABS: HEMATOCRIT 29.7 % (36.0-48.0); HEMOGLOBIN 10.5 g/dL (12-16); RBC 3.47 10x6/uL (4.00-5.40)
[2020-07-19 05:46] LABS: ANION GAP 9.9 mmol/L (8-16); CALCIUM 8.3 mg/dL (8.5-10.1); CARBON DIOXIDE 26.8 mmol/L (21.0-32.0); CREATININE - SERUM 0.8 mg/dL (0.6-1.3); POTASSIUM - SERUM 3.7 mmol/L (3.5-5.1)
--- NOTE | 2020-07-19 08:00 | NUR ---
SHIFT ASSMT COMPLETED.
[2020-07-19 08:18] VITALS: BP 135/61
[2020-07-19 19:00] VITALS: BP 108/51
--- NOTE | 2020-07-19 19:19 | NUR ---
AWAKE AND ALERT. RESTING IN BED WITH RESPIRAITONS UNLABORED. SAKINA PATENT. CONTACT ISOLATION IN PLACE. NO DISTRESS NOTED. CALL LIGHT IN REACH.
[2020-07-20 06:38] LABS: ANION GAP 11.6 mmol/L (8-16); CALCIUM 8.4 mg/dL (8.5-10.1); CARBON DIOXIDE 27.3 mmol/L (21.0-32.0); CREATININE - SERUM 0.9 mg/dL (0.6-1.3); POTASSIUM - SERUM 3.9 mmol/L (3.5-5.1)
--- NOTE | 2020-07-20 08:00 | NUR ---
SHIFT ASSMT COMPLETED.CL IN REACH.
[2020-07-20 08:48] VITALS: BP 151/56
--- NOTE | 2020-07-20 13:43 | OP ---
PATIENT NAME: CORNELIA WEBBER MEDICAL RECORD: [id number] :46 LOCATION:[facility]1116 ADMISSION DATE:07/17/20 SURGEON: KELTON ANDERSON MD DATE OF OPERATION: 07/18/2020 PRINCIPAL DIAGNOSES: 1. No peripheral IV access. 2. Anemia requiring blood transfusion. POSTOPERATIVE DIAGNOSES: 1. No peripheral IV access. 2. Anemia requiring blood transfusion. PROCEDURE PERFORMED: Insertion of right internal jugular 16-cm triple-lumen central venous catheter. SURGEON: Dr. Anderson LIFT TRUCK MECHANIC: None. BLOOD LOSS: Minimal. ANESTHESIA: Local. COMPLICATIONS: None. The entire procedure was performed with the presence of a nurse. The risks, possible complications, and alternatives to the procedure were explained to the patient. She elects to proceed. DESCRIPTION OF PROCEDURE: The patient was seen in her room. She was positioned in the Trendelenburg position. The right neck was sterilely prepped and draped. A local anesthetic was used to infiltrate the skin and subcutaneous tissues at the base of the right neck. The right internal jugular vein was percutaneously accessed in an antegrade fashion. A guidewire passed easily. A small skin scout was accomplished. A subcutaneous dilator was used to dilate the subcutaneous tract. A 16-cm triple-lumen central venous catheter was inserted to the hub. It was sutured in place times 2. All lumens flushed easily and aspirated dark, nonpulsatile blood. A stat portable chest x-ray revealed adequate placement of the central venous line. TRANSINT:[id number] Voice Confirmation ID: [id number] DOCUMENT ID: [id number] KELTON ANDERSON MD at 1343 CC: [id number] DICTATION DATE: 07/19/201814 POLYSTYRENE BEAD MOLDER: 07/20/20 0011 ADM IN [facility] [address] [place] [address]
[2020-07-20 19:00] VITALS: BP 146/59
--- NOTE | 2020-07-20 19:27 | NUR ---
AWAKE AND ALERT. RESTING IN BED WITH RESPIRATIONS UNLABORED. LEFT KNEE DRESSING IN PLACE. PRESLEY PATENT. CONTACT ISOLATION IN PLACE. NO ACUTE DISTRESS NOTED. CALL LIGHT IN REACH.
--- NOTE | 2020-07-21 01:33 | NUR ---
RESTING IN BED WITH RESPIRATIONS UNLABORED. NO DISTRESS NOTED.
[2020-07-21 06:09] LABS: BASOPHILS 0.1 % (0-2); EOSINOPHILS 3.3 % (0-7); HEMOGLOBIN 11.8 g/dL (12-16); IMMATURE GRANULOCYTES 1.2 % (0-5); LYMPHOCYTE ABS# 1.11 10x3/uL (1.18-3.74); LYMPHOCYTES 16.6 % (15-50); MCH 29.9 pg (26.0-34.0); MCHC 33.7 g/dL (31.0-37.0); MCV 88.8 fL (80.0-100.0); MEAN PLATELET VOLUME 9.2 fL (7.4-10.4); MONOCYTES 13.6 % (2-11); NEUTROPHIL ABS# 4.34 10x3/uL (1.56-6.13); NEUTROPHILS 65.2 % (40-80); RBC 3.94 10x6/uL (4.00-5.40); RDW 13.5 % (11.5-14.5); WBC 6.7 10x3/uL (4.8-10.8)
--- NOTE | 2020-07-21 06:16 | NUR ---
SAKINA CASTILLO. EDUCATION DONE ON NOTIFYING NURSE IF SHE VOIDS OR IF SHE DOESNT VOID IN 4 HOURS. VOICES UNDERSTANDING. CENTRAL LINE INTACT. MEDICATED FOR C/O PAIN IN LEFT KNEE. SEE MAR. RESPIRATIONS UNLABORED.
[2020-07-21 06:20] LABS: ANION GAP 10.4 mmol/L (8-16); CALCIUM 9.4 mg/dL (8.5-10.1); CARBON DIOXIDE 32.6 mmol/L (21.0-32.0); CREATININE - SERUM 0.9 mg/dL (0.6-1.3)
[2020-07-21 06:57] LABS: PLATELET COUNT 181 10x3/uL (130-400)
--- NOTE | 2020-07-21 07:32 | NUR ---
ALERT AND ORIENTED. ASSESSMENT COMPLETE. DENIES NEEDS. BED LOW. CALL [place] AND PERSONAL ITEMS IN REACH. WILL CONTINUE TO MONITOR.
[2020-07-21 07:47] VITALS: BP 160/79
--- NOTE | 2020-07-21 09:02 | NUR ---
PATIENT ASSISTED TO TOILET AND MEDIUM VOID NOTED.
--- NOTE | 2020-07-21 09:17 | NUR ---
DRSG CHANGED TO LEFT KNEE PER DRSG CHANGE ORDER. NEXT DRSG CHANGE 07/24 OR PRN.
--- NOTE | 2020-07-21 14:35 | NUR ---
RIGHT IJ CENTRAL LINE REMOVED PER ORDER AND PER ENGRAVER ORNAMENTAL DESIGN, OANH. NO BLEEDING. TIP INTACT. NURSE BODY SANDER NOTIFIED.
--- NOTE | 2020-07-21 17:51 | NUR ---
ASSISTED TO AND FROM BATHROOM TO VOID. DENIES FURTHER NEEDS. WILL CONTINUE TO MONITOR.
--- NOTE | 2020-07-21 18:49 | NUR ---
BEDSIDE REPORT COMPLETE. RECEIVED PT LYING IN BED, ALERT AND ORIENTED X4. DENIES ANY NEEDS OR PAIN. NO DISTRESS NOTED. LEFT KNEE DRESSING INTACT CHANGED TODAY BY BRIE ALBRECHT. HEELS RED BOGGY. HEELS BRIDGED. 1000ML FLUID RESTRICTION NO FREE WATER NOTED. CALL LIGHT WITHIN REACH. FALL PRECAUTIONS IN PLACE. CPOC
[2020-07-21 19:09] VITALS: BP 138/62
--- NOTE | 2020-07-22 00:33 | NUR ---
PT LYING IN BED SUPINE EYES CLOSED RESTING. HOB ELEVATED. RR EVEN AND UNLABORED. CALL LIGHT WITHIN REACH.
--- NOTE | 2020-07-22 02:44 | NUR ---
PT LYING IN BED ON LEFT SIDE EYES CLOSED RESTING. RR EVEN AND UNLABORED. CALL LIGHT WITHIN REACH
--- NOTE | 2020-07-22 03:45 | NUR ---
ASSISTED PT TO RESTROOM AND BACK TO BED WITH MIN ASSIST USING W/C. DENIES ANY OTHER NEEDS OR PAIN. NO DISTRESS NOTED. CALL LIGHT WITHIN REACH. JANNY ALARM ON
--- NOTE | 2020-07-22 04:25 | RHP ---
PATIENT: CORNELIA WEBBER MEDICAL RECORD: [id number] ACCOUNT: [id number] LOCATION:[facility]1116 : 46 ADMISSION DATE: 07/17/20 REHABILITATION HISTORY AND PHYSICAL EXAMINATION POST ADMISSION PHYSICIAN EXAMINATION POST ADMISSION PHYSICAL EXAMINATION AND HISTORY AND PHYSICAL ADMITTING DIAGNOSIS: Left lower extremity joint replacement with complications. HISTORY OF PRESENT ILLNESS: The patient is a 70-year-old female who was admitted from the Med-Surg floor secondary to uncontrolled pain secondary to a left total knee done by Dr. Bishop. The patient had osteoarthritis. She is status post a left knee arthroplasty. She had hyponatremia, UTI, ESBL E. coli in her urine, loose left knee angioplasty. 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 She had postop pain. She was taking morphine 4 mg IV every 3 hours and alternating with hydrocodone. She has been experiencing urinary retention. She has been placed on isolation secondary to ESBL. Her H&H are followed every day since she has been here. Prior to hospitalization, she lived independently with her spouse at home. Currently, she is mod assist for bed mobility, for sit to stand and bed to chair. She is able to ambulate 15 feet with a rolling walker. She is currently monitored for pain control, electrolytes, postop anemia, due to her need for medical management and low H&H and probably will be getting transfusion today, medication adjustments as well as indwelling Keyes. Returning home at this time is really not an option. We will work on this and hopefully get her back to her prior level of functioning. Comorbidities include anxiety, arthritis, decrease in mobility, decrease in physical functioning, depression, difficulty walking, electrolyte imbalance, hiatal hernia, low albumin, postop anemia, restless legs. PAST MEDICAL HISTORY: Significant for restless legs, hypertension, osteoarthritis, osteoporosis, gastroesophageal reflux disease, anxiety, depression, seasonal allergies, chronic pain, polyuria. PAST SURGICAL HISTORY: Includes cholecystectomy, back surgery, left hip replacement, right shoulder replacement. ALLERGIES: STATINS AND PENICILLIN. CURRENT MEDICATIONS: Include Flomax daily, lisinopril 20 mg daily, Flonase nasal spray daily, Lexapro 5 mg daily, Cymbalta 60 mg daily, Abilify 5 mg daily, Tylenol 500 mg. She will get premed prior to her infusion along with some Benadryl, Protonix 40 mg daily, Requip 0.5 mg at bedtime, trazodone 50 mg at bedtime, Bactrim DS 1 tab b.i.d., Colace 100 mg b.i.d., DDAVP 0.2 mg b.i.d., Eliquis 2.5 mg b.i.d., Phenergan 12.5 mg every 6 hours, Flint 7.5 one tab q.4 hours p.r.n., Lena 180 mg daily, carvedilol 6.25 mg b.i.d. with meals and MiraLax daily. HABITS: No alcohol or tobacco use. FAMILY HISTORY: Noncontributory. SOCIAL HISTORY: The patient hopes to return back home, get back to her prior level of functioning. HISTORY AND PHYSICAL [id number] CORNELIA WEBBER REVIEW OF SYSTEMS: GENERAL: Does complain of weakness, fatigue. HEENT: Denies cold, cough or congestion. CARDIOVASCULAR: Denies any chest pain. PHYSICAL EXAMINATION: VITAL SIGNS: Stable, afebrile. GENERAL: An elderly female in no acute distress upon exam. HEENT: Normocephalic and atraumatic. Mucosa moist. NECK: Supple. No lymphadenopathy. LUNGS: Clear at this time. No wheeze or rales. HEART: Regular rate and rhythm. No murmurs, rubs or gallops. ABDOMEN: Soft, benign, nondistended. Positive bowel sounds times 4. EXTREMITIES: Postoperative area to her left knee region looks pretty good. NEUROLOGIC: She does have weakness. LABORATORY DATA: Her white count is 5.1, H&H are 7.2 and 20.7 and platelet count is noted to be 119. Her sodium is 125, potassium 3.2, BUN and creatinine of 10 and 1.0 and blood sugar is noted to be 101. Admit UA is basically clear at this time. ASSESSMENT: A 70-year-old female patient admitted to the rehab with a working diagnosis of status post left total knee arthroplasty with complications. The patient has potential to make improvement. We instituted the following multidisciplinary therapies, including not limited to physical, occupational, respiratory, speech, nutritional services, prosthetics and orthotics. Given her complex medical condition and risks for more complications, rehabilitation services cannot be provided at a low level of care such as penitentiary facility. PLAN: 1. Admit to [facility] for inpatient therapy to include the following disciplines: A. Physical therapy to improve gait, all transfer skills and bed mobility to a modified independent level. B. Occupational therapy to improve activities of daily living. C. Case management to help with discharge planning and placement options. D. Nutrition to assist with nutritional needs. E. Rehabilitation nursing to assist in monitoring the patient's underlying medical conditions and to assist with any type of bowel or bladder management. 2. The patient's current medication and medical care will be continued. 3. Will be placed on standard fall precautions. 4. The patient's estimated length of stay is approximately 7-10 days. 5. We will discuss this patient during care team staff meeting this week, but I will go ahead and transfuse her and we will see her again in the a.m. and I am going to go ahead and replace her potassium today also. TRANSINT:[id number] Voice Confirmation ID: [id number] DOCUMENT ID: [id number] ANNA notes whether there has been none or any medical/functional change since admission: - No change since preadmission screen. HISTORY AND PHYSICAL [id number] CORNELIA WEBBER attests patient continues to be appropriate for IRF: - Continues to be appropriate. NICOLETTE BANG MD at 0425 CC: [id number] DICTATION DATE: 07/18/20846 ENDBANDER: 07/18/20 0947 ADM IN [facility] [address] [place] [id number]
--- NOTE | 2020-07-22 05:14 | NUR ---
ASSISTED PT TO RESTROOM AND BACK TO BED WITH MIN ASSIST. DENIES ANY NEEDS OR PAIN. NO DISTRESS NOTED. NO ACUTE CHANGES IN CONDITION THIS SHIFT. CALL LIGHT WITHIN REACH. JANNY ALARM ON. CPOC
[2020-07-22 07:16] LABS: % SATURATION 23 % (15-55); IRON 65 ug/dl (35-150); TOTAL IRON BIND CAPACITY 279 ug/dl (260-445); UNSAT IRON BIND CAPACITY 214 ug/dl (150-375)
[2020-07-22 07:29] LABS: ANION GAP 10.6 mmol/L (8-16); CALCIUM 9.1 mg/dL (8.5-10.1); CARBON DIOXIDE 28.8 mmol/L (21.0-32.0); CREATININE - SERUM 0.9 mg/dL (0.6-1.3); POTASSIUM - SERUM 4.4 mmol/L (3.5-5.1)
[2020-07-22 07:55] VITALS: BP 104/50
--- NOTE | 2020-07-22 11:43 | NUR ---
HAS BEEN UP AND DOWN TO BATHROOM. IS SBA. IS CONT OF B/B. DENIES INCREASED PAIN TO LEFT KNEE. SLOW TO ANSWER AT TIMES. FLAT AFFECT.
--- NOTE | 2020-07-22 16:29 | NUR ---
Nutrition Follow-up Diet: Regular 1000mL fluid restriction PO intake: ~37% average x last 9 meals Last BM: 07/20/20 Wt: 156# (07/18/20) Meds noted: bumex, probiotics, k-dur, NaCl Labs noted: Na 132(L), Glu 134(H) Recommend continue current diet (or per MD). Recommend encouraged PO intake at meal times. Consider adding oral nutrition supplement as medically feasible with current fluid restriction. Consider appetite stimulant as medically feasible. RD will follow-up 07/25/20.
--- NOTE | 2020-07-22 18:47 | NUR ---
BEDSIDE REPORT COMPLETE. RECIEVED PT SITTING UP IN BED, ALERT AND ORIENTED X4. C/O LEFT KNEE 4/10 DISCOMFORT. REQUESTS PAIN MEDICATION WITH HS MEDS IF ABLE. LEFT KNEE DRESSING INTACT. HEELS BRIDGED. DENIES ANY OTHER NEEDS. NO IV OR OXYGEN NOTED. NO DISTRESS NOTED. CALL LIGHT AND HYDRATION WITHIN REACH. 1000ML FLUID RESTRICTION, NO FREE WATER NOTED. FALL PRECAUTIONS IN PLACE. CPOC
[2020-07-22 20:00] VITALS: BP 139/50
--- NOTE | 2020-07-22 23:41 | NUR ---
PT LYING IN BED ON LEFT SIDE EYES CLOSED RESTING. RR EVEN AND UNLABORED. CALL LIGHT WITHIN REACH
--- NOTE | 2020-07-23 03:03 | NUR ---
PT LYING IN BED EYES CLOSED RESTING. RR EVEN AND UNLABORED. CALL LIGHT WITHIN REACH.
--- NOTE | 2020-07-23 05:50 | NUR ---
DR. MARIN CALLED REGARDING PT LABS, LABS REVIEWED. FLUID RESTRICTION INCREASED FROM 1000ML TO 1500ML, REMOVE WATER RESTRICTION, DC BUMEX 2MG, AND ORDER ONE TIME DOSE BUMEX 1MG PO. TELEPHONE ORDERS READ BACK AND VERIFIED BY DR. MARIN.
[2020-07-23 07:18] LABS: HEMATOCRIT 33.4 % (36.0-48.0); LYMPHOCYTE ABS# 0.88 10x3/uL (1.18-3.74); MCH 30.5 pg (26.0-34.0); MCHC 32.9 g/dL (31.0-37.0); MCV 92.5 fL (80.0-100.0); MEAN PLATELET VOLUME 9.5 fL (7.4-10.4); NEUTROPHIL ABS# 2.58 10x3/uL (1.56-6.13); RBC 3.61 10x6/uL (4.00-5.40); RDW 13.7 % (11.5-14.5); WBC 4.6 10x3/uL (4.8-10.8)
[2020-07-23 07:28] LABS: PLATELET COUNT 109 10x3/uL (130-400)
[2020-07-23 07:41] VITALS: BP 94/60
[2020-07-23 07:52] LABS: ANION GAP 12.5 mmol/L (8-16); CALCIUM 9.2 mg/dL (8.5-10.1); CARBON DIOXIDE 26.9 mmol/L (21.0-32.0); CREATININE - SERUM 0.8 mg/dL (0.6-1.3); POTASSIUM - SERUM 4.4 mmol/L (3.5-5.1)
[2020-07-23 12:31] LABS: EOSINOPHILS 2 % (0-7); LYMPHOCYTES 29 % (15-50); MONOCYTES 13 % (2-11); NEUTROPHILS 56 % (40-80); PLATELET ESTIMATE DECREASED; ROULEAUX OCC
--- NOTE | 2020-07-23 16:08 | NUR ---
CARE TEAM MEETING: PATIENT IS PROGRESSING IN THERAPY. HER TENATIVE DC DATE IS 07/30/20. WILL CONTINUE TO FOLLOW WITH PATIENT.
[2020-07-23 17:38] VITALS: BP 153/74
--- NOTE | 2020-07-23 18:52 | NUR ---
BEDSIDE REPORT COMPLETE. RECEIVED PT SITTING UP IN BED, ALERT AND ORIENTED X4. DENIES ANY NEEDS OR PAIN. NO DISTRESS NOTED. LEFT KNEE DRESSING INTACT. CALL LIGHT WITHIN REACH. FALL PRECAUTIONS IN PLACE. CPOC
[2020-07-23 21:27] VITALS: BP 147/64
--- NOTE | 2020-07-24 01:47 | NUR ---
PT LYING IN BED ON LEFT SIDE EYES CLOSED RESTING. RR EVEN AND UNLABORED. CALL LIGHT WITHIN REACH.
--- NOTE | 2020-07-24 04:22 | NUR ---
PT LYING IN BED EYES CLOSED RESTING. NO ACUTE CHANGES IN CONDITION THIS SHIFT. CALL LIGHT WITHIN REACH
--- NOTE | 2020-07-24 04:54 | NUR ---
ASSISTED PT TO RESTROOM AND BACK TO BED WITH MIN ASSIST. DENIES ANY OTHER NEEDS. NO DISTRESS NOTED. CALL LIGHT WITHIN REACH. JANNY ALARM ON
[2020-07-24 08:00] VITALS: BP 170/68
--- NOTE | 2020-07-24 08:00 | NUR ---
SHIFT ASSMT COMPLETED.
--- NOTE | 2020-07-24 16:00 | NUR ---
PT HAS BEEN CONTINENT TODAY.CONT TO MONITOR.ZAKI THERAPY.
--- NOTE | 2020-07-24 17:00 | NUR ---
ZAKI CPM.MACHINE REMOVED.
[2020-07-24 20:00] VITALS: BP 151/54
--- NOTE | 2020-07-24 20:00 | NUR ---
PATIENT REMAINS IN CONTACT ISOLATION. PATIENT IS ALERT/ORIENT. CALL LIGHT WITHIN REACH. VOICES NO NEEDS AT THIS TIME. WILL CONTINUE WITH PLAN OF CARE
--- NOTE | 2020-07-24 23:44 | NUR ---
PRN NORCO AND XANAX GIVEN PER PATIENT REQUEST
--- NOTE | 2020-07-25 04:13 | NUR ---
PATIENT TURNED HAIRSPRING FABRICATION SUPERVISOR LIGHT TO USE BATHROOM. STAND BY ASST FROM BED INTO WHEELCHAIR.
--- NOTE | 2020-07-25 05:23 | NUR ---
I have reviewed this patient and I concur with the Shift Assessment completed by the Licensed Practical Nurse today this shift.
[2020-07-25 06:09] LABS: ANION GAP 13.4 mmol/L (8-16); CALCIUM 9.2 mg/dL (8.5-10.1); CARBON DIOXIDE 27.4 mmol/L (21.0-32.0); CREATININE - SERUM 0.8 mg/dL (0.6-1.3); POTASSIUM - SERUM 3.8 mmol/L (3.5-5.1)
[2020-07-25 08:00] VITALS: BP 179/68
--- NOTE | 2020-07-25 10:31 | NUR ---
LAYING IN BED WATCHING TV. PAIN MEDS GIVEN ORDERED AND REQUESTED. DSG IN PLACE TO LEFT KNEE. PEDAL PULSES PRESENT X2. FLAT AFFECT NOTED. CALL LIGHT IN REACH
--- NOTE | 2020-07-25 13:55 | NUR ---
Nutrition Re-Assessment: Diet: Regular 1500mL fluid restriction PO intake: ~48% average x last 9 meals Last BM: 07/24/20 Wt: 156# (07/18/20) Meds noted: NaCl, probiotics, K-dur Labs noted: Glu 129(H) Estimated nutrition needs and nutrition diagnosis remain unchanged from initial nutrition assessment. Secondary nutrition diagnosis: Inadequate energy intake r/t inadequate oral intake AEB PO intake consistently <50% average. PO intake has improved slightly over this week. Patient is progressing towards meeing nutrition goals at this time. Recommendations/Interventions: -Recommend continue current diet, encourage PO intake. -Needs new weight. -MD may consider adding appetite stimulant as medically feasible. -RD will follow-up 07/29/20.
--- NOTE | 2020-07-25 14:30 | NUR ---
INFECTION CONTROL CONTACTED AND PER THEM, PT NEEDS TO REMAIN IN ISOLATION DUE TO ESBL IN HER URINE.
--- NOTE | 2020-07-25 18:47 | NUR ---
BEDSIDE REPORT COMPLETE. RECEIVED PT SITTING UP IN BED. ALERT AND ORIENTED X4. DENIES ANY PAIN OR NEEDS. NO DISTRESS NOTED. LEFT KNEE DRESSING INTACT. NO DRAINAGE NOTED. GENERALIZED EDEMA TO LEFT KNEE AREA. NO REDNESS OR WARMTH NOTED. NO IV OR OXYGEN. CALL LIGHT AND WATER WITHIN REACH. FALL PRECAUTIONS IN PLACE. CPOC
[2020-07-25 20:52] VITALS: BP 190/72
[2020-07-25 22:12] LABS: BASOPHILS 0.2 % (0-2); HEMATOCRIT 32.7 % (36.0-48.0); HEMOGLOBIN 10.7 g/dL (12-16); IMMATURE GRANULOCYTES 0.2 % (0-5); LYMPHOCYTE ABS# 1.09 10x3/uL (1.18-3.74); LYMPHOCYTES 24.9 % (15-50); MCH 29.7 pg (26.0-34.0); MCHC 32.7 g/dL (31.0-37.0); MCV 90.8 fL (80.0-100.0); MEAN PLATELET VOLUME 9.1 fL (7.4-10.4); MONOCYTES 10.5 % (2-11); NEUTROPHIL ABS# 2.67 10x3/uL (1.56-6.13); NEUTROPHILS 61.2 % (40-80); RDW 13.4 % (11.5-14.5); WBC 4.4 10x3/uL (4.8-10.8)
[2020-07-25 22:13] LABS: PLATELET COUNT 181 10x3/uL (130-400)
--- NOTE | 2020-07-25 22:39 | NUR ---
PT LYING IN BED WATCHING TV. DENIES ANY NEEDS OR PAIN. NO DISTRESS NOTED. CALL LIGHT AND WATER WITHIN REACH.
--- NOTE | 2020-07-26 00:59 | NUR ---
PT LYING IN BED ON LEFT SIDE EYES CLOSED RESTING. RR EVEN AND UNLABORED. CALL LIGHT WITHIN REACH
--- NOTE | 2020-07-26 04:36 | NUR ---
PT LYING IN BED SUPINE EYES CLOSED RESTING. RR EVEN AND UNLABORED. NO ACUTE CHANGES IN CONDITION THIS SHIFT. CALL LIGHT WITHIN REACH
[2020-07-26 06:16] LABS: CALC OSMOLALITY 267 mosm/kg (275-300); CALCIUM 8.8 mg/dL (8.5-10.1); CHLORIDE - SERUM 99 mmol/L (98-107); CREATININE - SERUM 0.6 mg/dL (0.6-1.3); GLUCOSE 109 mg/dL (74-106); SODIUM 134 mmol/L (136-145); UREA NITROGEN 11 mg/dL (7-18); eGFR NON AFRICAN AMERICAN > 90 mL/min (90-120)
[2020-07-26 08:00] VITALS: BP 194/86
--- NOTE | 2020-07-26 15:19 | NUR ---
RESTING QUIETLY IN BED WATCHING TV. HAS BEEN IN BED ALL DAY AND DECLINED TO SIT UP FOR A BIT. INCISION IS COVERED BY DSG. DENIES NEW OR WORSE PAIN. IS SBA WITH TRANSFER TO FROM BED AND TO TOILET. CALL LIGHT IN REACH, BED IN LOWEST POSITION.
--- NOTE | 2020-07-26 18:50 | NUR ---
BEDSIDE REPORT COMPLETE. RECEIVED PT LYING IN BED AWAKE. ALERT AND ORIENTED X4. DENIES ANY NEEDS OR PAIN. PT IS STILL IN AGREEMENT WITH SHOWERING TONIGHT AFTER HS MEDS. NO DISTRESS NOTED. LEFT KNEE DRESSING INTACT. NO S/S OF INFECTION. BLE +1 EDEMA NOTED. FLUID RESTRICTION 1500ML, 840ML CONSUMED 7A-7P. CALL LIGHT AND WATER WITHIN REACH. FALL PRECAUTIONS IN PLACE. CPOC
[2020-07-26 20:59] VITALS: BP 158/82
--- NOTE | 2020-07-26 21:30 | NUR ---
ASSISTED PT WITH SHOWER. PT ABLE TO WASH ALL BODY PARTS EXCEPT FOR FEET AND BACK. SAME FOR DRYING OFF. PT NOW C/O 11/08 LEFT KNEE DEEP RADIATING PAIN REQUESTS PAIN MEDICATION. ADMININSTERED NORCO 7.5/325MG X2 PER ORDER. NO OTHER NEEDS VOICED. PT IN BED SUPINE HEELS FLOATED. NO DISTRESS NOTED. CALL LIGHT WITHIN REACH. FALL PRECAUTIONS IN PLACE. CPOC
--- NOTE | 2020-07-27 01:03 | NUR ---
PT LYING IN BED EYES CLOSED RESTING. RR EVEN AND UNLABORED. CALL LIGHT WITHIN REACH
--- NOTE | 2020-07-27 01:36 | NUR ---
ASSISTED PT TO RESTROOM AND BACK TO BED WITH SBA USING WALKER. VOID ONLY. DENIES ANY OTHER NEEDS OR PAIN. LYING IN BED ON LEFT SIDE. CALL LIGHT WITHIN REACH. JANNY ALARM ON
--- NOTE | 2020-07-27 03:30 | NUR ---
ASSISTED PT TO RESTROOM AND BACK TO BED WITH SBA USING WALKER. DENIES ANY OTHER NEEDS OR PAIN. NO DISTRESS NOTED. CALL LIGHT WITHIN REACH
--- NOTE | 2020-07-27 05:00 | NUR ---
ASSISTED PT TO RESTROOM AND BACK TO BED WITH SBA USING WALKER. C/O 08/09 LEFT KNEE ACHING PAIN, REQUESTS PAIN MEDICATION. DENIES ANY OTHER NEEDS. CALL LIGHT WITHIN REACH. JANNY ALARM ON. CPOC
[2020-07-27 06:21] LABS: CALC OSMOLALITY 271 mosm/kg (275-300); CALCIUM 9.2 mg/dL (8.5-10.1); CARBON DIOXIDE 26.2 mmol/L (21.0-32.0); CHLORIDE - SERUM 101 mmol/L (98-107); CREATININE - SERUM 0.7 mg/dL (0.6-1.3); GLUCOSE 117 mg/dL (74-106); POTASSIUM - SERUM 3.9 mmol/L (3.5-5.1); SODIUM 135 mmol/L (136-145); eGFR NON AFRICAN AMERICAN 87 mL/min (90-120)
[2020-07-27 06:22] LABS: UREA NITROGEN 15 mg/dL (7-18)
[2020-07-27 08:13] VITALS: BP 156/79
--- NOTE | 2020-07-27 18:50 | NUR ---
BEDSIDE REPORT COMPLETE. RECEIVED PT SITTING UP ON SIDE OF BED. ASSISTED TO RESTROOM AND BACK TO BED WITH SBA USING WALKER. DENIES ANY OTHER NEEDS OR PAIN. NO DISTRESS NOTED. LEFT KNEE DRESSING INTACT. CALL LIGHT WITHIN REACH. FALL PRECAUTIONS IN PLACE. CPOC
[2020-07-27 20:47] VITALS: BP 196/75
--- NOTE | 2020-07-28 02:28 | NUR ---
PT LYING IN BED ON LEFT SIDE EYES CLOSED RESTING. RR EVEN AND UNLABORED. CALL LIGHT WITHIN REACH.
--- NOTE | 2020-07-28 05:44 | NUR ---
PT LYING IN BED EYES CLOSED RESTING. RR EVEN AND UNLABORED. NO ACUTE CHANGES IN CONDITION THIS SHIFT. CALL LIGHT WITHIN REACH
[2020-07-28 07:15] LABS: BASOPHILS 0.4 % (0-2); EOSINOPHILS 2.2 % (0-7); HEMATOCRIT 36.4 % (36.0-48.0); IMMATURE GRANULOCYTES 0.4 % (0-5); LYMPHOCYTE ABS# 1.03 10x3/uL (1.18-3.74); LYMPHOCYTES 22.3 % (15-50); MCH 30.2 pg (26.0-34.0); MCV 91.7 fL (80.0-100.0); MEAN PLATELET VOLUME 9.5 fL (7.4-10.4); MONOCYTES 10.2 % (2-11); NEUTROPHIL ABS# 2.97 10x3/uL (1.56-6.13); NEUTROPHILS 64.5 % (40-80); RBC 3.97 10x6/uL (4.00-5.40); RDW 13.5 % (11.5-14.5); WBC 4.6 10x3/uL (4.8-10.8)
[2020-07-28 07:25] LABS: PLATELET COUNT 222 10x3/uL (130-400)
[2020-07-28 08:00] VITALS: BP 163/46
[2020-07-28 11:54] LABS: ANION GAP 10.9 mmol/L (8-16); CALCIUM 8.9 mg/dL (8.5-10.1); CARBON DIOXIDE 26.4 mmol/L (21.0-32.0); CREATININE - SERUM 0.9 mg/dL (0.6-1.3); POTASSIUM - SERUM 4.3 mmol/L (3.5-5.1)
[2020-07-28 20:00] VITALS: BP 157/64
--- NOTE | 2020-07-29 04:30 | NUR ---
PT IS RESTING WITH EYES CLOSED. RESPIRATIONS ARE EVEN AND UNLABORED. HER BED IS LOW, BED ALARM ON AND CALL LIGHT IS WITHIN REACH.
[2020-07-29 07:11] LABS: CALC OSMOLALITY 274 mosm/kg (275-300); CALCIUM 8.8 mg/dL (8.5-10.1); CARBON DIOXIDE 26.6 mmol/L (21.0-32.0); CHLORIDE - SERUM 103 mmol/L (98-107); CREATININE - SERUM 0.6 mg/dL (0.6-1.3); GLUCOSE 105 mg/dL (74-106); POTASSIUM - SERUM 4.2 mmol/L (3.5-5.1); SODIUM 137 mmol/L (136-145); UREA NITROGEN 14 mg/dL (7-18)
[2020-07-29 07:12] LABS: eGFR NON AFRICAN AMERICAN > 90 mL/min (90-120)
[2020-07-29 07:17] LABS: BASOPHILS 0.4 % (0-2); EOSINOPHILS 2.6 % (0-7); HEMATOCRIT 34.1 % (36.0-48.0); HEMOGLOBIN 11.4 g/dL (12-16); IMMATURE GRANULOCYTES 0.4 % (0-5); LYMPHOCYTE ABS# 1.24 10x3/uL (1.18-3.74); LYMPHOCYTES 24.8 % (15-50); MCH 30.6 pg (26.0-34.0); MCHC 33.4 g/dL (31.0-37.0); MCV 91.4 fL (80.0-100.0); MEAN PLATELET VOLUME 9.3 fL (7.4-10.4); NEUTROPHIL ABS# 3.09 10x3/uL (1.56-6.13); NEUTROPHILS 61.8 % (40-80); PLATELET COUNT 223 10x3/uL (130-400); RBC 3.73 10x6/uL (4.00-5.40); RDW 13.8 % (11.5-14.5)
[2020-07-29 08:00] VITALS: BP 144/70
--- NOTE | 2020-07-29 08:00 | NUR ---
SHIFT ASSMT COMPLETED.CL IN REACH.
--- NOTE | 2020-07-29 09:34 | NUR ---
Nutrition Re-assessment Diet: Regular 1500mL fluid restriction PO intake: ~30% x 3 meals yesterday Last BM: 07/25/20 Wt: 156# (07/18/20) Meds noted: probiotics, abx, k-dur Labs reviewed. Estimated nutrition needs remain unchanged from initial nutrition assessment. Nutrition diagnosis: Inadequate energy intake r/t inadequate oral intake AEB PO intake <65% meals average. Patient is not currently progressing towards meeting nutrition goals. Recommendations/Interventions: -Recommend continue current diet, fluid restriction per MD. -Will add Ensure once daily (will have to come from fluid restriction). -Will continue to monitor PO intake and wt trend. -Needs new weight. -RD will follow-up 08/04/20.
--- NOTE | 2020-07-29 12:00 | NUR ---
EATING LUNCH IN BED.ENCOUARGED TO EAT MEALS UP IN CHAIR AND TO STAY OOB MUCH POSS BUT DECLINED.
[2020-07-29] MEDS ORDERED: HYDROCODONE-AC1 EAC2 PO (14:24)
--- NOTE | 2020-07-29 16:00 | NUR ---
FINISHED CPM.ON X2H TODAY;STATED SHE MAY WEAR MORE LATER.
--- NOTE | 2020-07-29 20:10 | NUR ---
PT IN BED WATCHING TV NO IMMEDIATE NEEDS NOTED, FLUID RESTRICTION 1500ML, ALLOWED 600ML TONIGHT, CL WITHIN REACH
[2020-07-30 07:10] LABS: BASOPHILS 0.5 % (0-2); EOSINOPHILS 3.3 % (0-7); HEMOGLOBIN 11.2 g/dL (12-16); IMMATURE GRANULOCYTES 0.5 % (0-5); LYMPHOCYTE ABS# 1.31 10x3/uL (1.18-3.74); LYMPHOCYTES 35.9 % (15-50); MCH 30.1 pg (26.0-34.0); MCHC 32.9 g/dL (31.0-37.0); MCV 91.4 fL (80.0-100.0); MEAN PLATELET VOLUME 9.3 fL (7.4-10.4); MONOCYTES 12.6 % (2-11); NEUTROPHIL ABS# 1.72 10x3/uL (1.56-6.13); NEUTROPHILS 47.2 % (40-80); PLATELET COUNT 225 10x3/uL (130-400); RBC 3.72 10x6/uL (4.00-5.40); RDW 13.8 % (11.5-14.5); WBC 3.7 10x3/uL (4.8-10.8)
[2020-07-30 07:54] LABS: CALC OSMOLALITY 268 mosm/kg (275-300); CARBON DIOXIDE 26.5 mmol/L (21.0-32.0); CHLORIDE - SERUM 101 mmol/L (98-107); CREATININE - SERUM 0.6 mg/dL (0.6-1.3); GLUCOSE 122 mg/dL (74-106); POTASSIUM - SERUM 4.1 mmol/L (3.5-5.1); SODIUM 134 mmol/L (136-145); UREA NITROGEN 13 mg/dL (7-18); eGFR NON AFRICAN AMERICAN > 90 mL/min (90-120)
--- NOTE | 2020-07-30 08:00 | NUR ---
SHIFT ASSMT COMPLETED.PLAN TO DISCHARGE HOME TODAY.ENC TO KEEP HEELS OFF MATTRESS.FLOATED HEELS OFF BED.STATED I GUESS I TAKE THEM OFF IN MY SLEEP.
--- NOTE | 2020-07-30 11:33 | NUR ---
PATIENT DISCHARGING HOME WITH FAMILY TODAY. [facility] WILL PROVIDE HOME THERAPY. COMPARE DATA REVIEWED , PATIENT VOICED UNDERSTANDING. FELICITAS SIGNED, IMM SERVED AND EXPLAINED, ONE GIVEN TO PATIENT AND ONE FILED IN CHART. DR. BHATIA 08/06/20 @ 10:30, DR. LOPEZ 08/01/20 @ 9:40, DR. MARIN 08/06/20 @ 11:40. DISCHARGE INSTRUCTIONS FAXED TO PCP, HOME HEALTH AND REVIEWED WITH PATIENT.[employer] DELIVERED A WALKER AND BEDSIDE COMMODE TO PATIENT.
--- NOTE | 2020-07-30 12:00 | NUR ---
REVIEWED MEDS AND F/U APPTS.DC'D TO HOME IN STABLE CONDITION.[facility] TO FOLLOW AND CONTINUE PT/OT.CHECKED WITH PATIENTS PHARMACY AND MEDS RECIEVED
== END 2020-07-30 16:57 | disposition home health service (06) | DRG 560 ==
LOC: D.REHAB 15:06
PROVIDERS: Internal Medicine; Internal Medicine Nephrology; ADMIT Emergency Medicine; ATTEND Emergency Medicine
DX: T84.84XA Pain due to internal orthopedic prosthetic devices, implants and grafts, initial encounter (principal); E87.1 Hypo-osmolality and hyponatremia; N39.0 Urinary tract infection, site not specified; F41.9 Anxiety disorder, unspecified; M19.90 Unspecified osteoarthritis, unspecified site; F32.9 Major depressive disorder, single episode, unspecified; R26.2 Difficulty in walking, not elsewhere classified; E87.8 Other disorders of electrolyte and fluid balance, not elsewhere classified; K44.9 Diaphragmatic hernia without obstruction or gangrene; G25.81 Restless legs syndrome; D64.9 Anemia, unspecified; Z96.652 Presence of left artificial knee joint; K21.9 Gastro-esophageal reflux disease without esophagitis; R33.9 Retention of urine, unspecified

== ENCOUNTER 2020-08-05 11:10 | Inpatient (IN) | payer MEDICARE, OTHER ==
[~2020-08-05] VITALS: Ht 154.9 cm; Wt 71.1 kg
[2020-08-05 12:00] VITALS: BP 189/69
[2020-08-05 12:24] LABS: APTT 24.9 SECONDS (22.8-39.4); INR 1.09 (0.85-1.17); PROTIME 13.1 SECONDS (11.6-15.0)
[2020-08-05 12:36] LABS: D-DIMER-QUANTITATIVE 2.81 ug/mLFEU (0.20-0.54)
[2020-08-05 13:00] VITALS: BP 168/64
[2020-08-05 14:45] LABS: CALCIUM 8.1 mg/dL (8.5-10.1); CARBON DIOXIDE 17.2 mmol/L (21.0-32.0); CREATININE - SERUM 0.5 mg/dL (0.6-1.3); GLUCOSE 77 mg/dL (74-106); POTASSIUM - SERUM 4.2 mmol/L (3.5-5.1); UREA NITROGEN 12 mg/dL (7-18); eGFR NON AFRICAN AMERICAN > 90 mL/min (90-120)
[2020-08-05 14:47] LABS: CALC OSMOLALITY 248 mosm/kg (275-300); SODIUM 124 mmol/L (136-145)
[2020-08-05 14:48] LABS: CHLORIDE - SERUM 102 mmol/L (98-107)
[2020-08-05 14:50] LABS: ALBUMIN 3.6 g/dL (3.4-5.0); ALKALINE PHOSPHATASE 259 U/L (30-120); ALT (SGPT) 32 U/L (10-68); BILIRUBIN - TOTAL 1.07 mg/dL (0.2-1.3); C-REACTIVE PROTEIN 0.6 mg/dL (0.0-0.9); PROTEIN - SERUM 6.8 g/dL (6.4-8.2)
[2020-08-05 15:00] VITALS: BP 172/77
[2020-08-05 15:48] LABS: BASOPHILS 0.3 % (0-2); EOSINOPHILS 0.5 % (0-7); HEMATOCRIT 37.8 % (36.0-48.0); IMMATURE GRANULOCYTES 0.2 % (0-5); LYMPHOCYTE ABS# 1.32 10x3/uL (1.18-3.74); MCH 31.1 pg (26.0-34.0); MCHC 34.4 g/dL (31.0-37.0); MCV 90.4 fL (80.0-100.0); MEAN PLATELET VOLUME 10.5 fL (7.4-10.4); NEUTROPHIL ABS# 4.13 10x3/uL (1.56-6.13); PLATELET COUNT 261 10x3/uL (130-400); RBC 4.18 10x6/uL (4.00-5.40); RDW 14.2 % (11.5-14.5)
[2020-08-05 16:30] VITALS: BP 154/70
[2020-08-05 18:00] VITALS: BP 149/69
--- NOTE | 2020-08-05 19:17 | NUR ---
REPORT TO BRIE ROJAS
--- NOTE | 2020-08-05 20:30 | NUR ---
ADMITED TO ROOM FROM ER ALERT AND ORIENTIATED, C/O LEFT KNEE PAIN STATES SURGERY ON 07/14, REPORTS TURNED OVER IN BED LAST NIGHT AND HEARD A POP AND KNEE HAS BEEN HURTING AND UNABLE TO BEND SINCE, HEALED INCISION WITH BRUSING NOTED ALONG INCISION LINE, SEE ASSESSMENT, CALL LIGHT IN REACH
[2020-08-05 22:53] VITALS: BP 151/71; BMI 28.4
[2020-08-06 00:11] VITALS: BP 146/58
[2020-08-06 04:59] LABS: BASOPHILS 0.2 % (0-2); EOSINOPHILS 1.6 % (0-7); HEMATOCRIT 36.4 % (36.0-48.0); HEMOGLOBIN 12.6 g/dL (12-16); IMMATURE GRANULOCYTES 0.2 % (0-5); LYMPHOCYTE ABS# 1.67 10x3/uL (1.18-3.74); LYMPHOCYTES 39.1 % (15-50); MCH 31.5 pg (26.0-34.0); MCHC 34.6 g/dL (31.0-37.0); MEAN PLATELET VOLUME 9.7 fL (7.4-10.4); MONOCYTES 13.8 % (2-11); NEUTROPHIL ABS# 1.92 10x3/uL (1.56-6.13); NEUTROPHILS 45.1 % (40-80); PLATELET COUNT 268 10x3/uL (130-400); RDW 14.2 % (11.5-14.5)
[2020-08-06 05:08] LABS: WBC 4.3 10x3/uL (4.8-10.8)
[2020-08-06 05:27] LABS: ALBUMIN 3.9 g/dL (3.4-5.0); ALKALINE PHOSPHATASE 264 U/L (30-120); ALT (SGPT) 33 U/L (10-68); BILIRUBIN - TOTAL 0.88 mg/dL (0.2-1.3); CALCIUM 9.4 mg/dL (8.5-10.1); CHLORIDE - SERUM 96 mmol/L (98-107); GLUCOSE 99 mg/dL (74-106); MAGNESIUM - SERUM 1.9 mg/dL (1.8-2.4); POTASSIUM - SERUM 4.1 mmol/L (3.5-5.1); PROTEIN - SERUM 7.2 g/dL (6.4-8.2); SODIUM 132 mmol/L (136-145)
[2020-08-06 05:29] LABS: CALC OSMOLALITY 265 mosm/kg (275-300); CARBON DIOXIDE 22.5 mmol/L (21.0-32.0); CREATININE - SERUM 0.7 mg/dL (0.6-1.3); UREA NITROGEN 16 mg/dL (7-18); eGFR NON AFRICAN AMERICAN 87 mL/min (90-120)
[2020-08-06 06:00] VITALS: BP 152/67
--- NOTE | 2020-08-06 07:30 | NUR ---
SHIFT ASSESSMENT COMPLETED. PT CHANGED. LEFT OUT OF BRIEF FOR EASIER USE TO USE THE BEDPAN. CL IN REACH.
[2020-08-06 08:29] VITALS: BP 192/70
--- NOTE | 2020-08-06 10:26 | NUR ---
PLACED PT IN CONTACT ISOLATION. NEW ROOM GIVEN 2225. CL IN REACH. BED ALARM ON. WCTM
--- NOTE | 2020-08-06 13:31 | NUR ---
RESUMED CARE OF PT. RECIEVED BEDSIDE REPORT. IN ROOM, FREE FROM SIGNS OF DISTRESS. WILL CONTINUE TO MONITOR.
[2020-08-06 14:48] VITALS: BP 156/76
[2020-08-06 20:00] VITALS: BP 135/63
--- NOTE | 2020-08-06 23:51 | NUR ---
I have reviewed this patient and I concur with the Shift Assessment completed by the Licensed Practical Nurse today this shift.
[2020-08-07] VITALS (7 sets, daily range): BP systolic 108–140; BP diastolic 51–65
[2020-08-07 06:03] LABS: BASOPHILS 0.6 % (0-2); EOSINOPHILS 2.6 % (0-7); HEMATOCRIT 37.6 % (36.0-48.0); HEMOGLOBIN 12.4 g/dL (12-16); LYMPHOCYTE ABS# 1.42 10x3/uL (1.18-3.74); LYMPHOCYTES 41.3 % (15-50); MCH 30.5 pg (26.0-34.0); MCV 92.6 fL (80.0-100.0); MEAN PLATELET VOLUME 9.8 fL (7.4-10.4); MONOCYTES 15.1 % (2-11); NEUTROPHIL ABS# 1.39 10x3/uL (1.56-6.13); NEUTROPHILS 40.4 % (40-80); PLATELET COUNT 240 10x3/uL (130-400); RBC 4.06 10x6/uL (4.00-5.40); RDW 14.6 % (11.5-14.5); WBC 3.4 10x3/uL (4.8-10.8)
[2020-08-07 06:40] LABS: ALBUMIN 3.7 g/dL (3.4-5.0); ALKALINE PHOSPHATASE 231 U/L (30-120); ALT (SGPT) 30 U/L (10-68); BILIRUBIN - TOTAL 0.67 mg/dL (0.2-1.3); CALC OSMOLALITY 270 mosm/kg (275-300); CALCIUM 9.2 mg/dL (8.5-10.1); CARBON DIOXIDE 25.9 mmol/L (21.0-32.0); CHLORIDE - SERUM 98 mmol/L (98-107); CREATININE - SERUM 0.7 mg/dL (0.6-1.3); GLUCOSE 119 mg/dL (74-106); MAGNESIUM - SERUM 1.8 mg/dL (1.8-2.4); PROTEIN - SERUM 6.8 g/dL (6.4-8.2); SODIUM 134 mmol/L (136-145); UREA NITROGEN 19 mg/dL (7-18); eGFR NON AFRICAN AMERICAN 87 mL/min (90-120)
--- NOTE | 2020-08-07 07:00 | NUR ---
PT IS RESTING IN BED WITH EYES CLOSED. RESPIRAITONS ARE EVEN AND UNLABORED. PT IS EASILY AROUSED WITH VERBAL STIMULATION AND IS AAO X 4 UPON AROUSAL. PT DENIES PRESENCE OF PAIN/N/V AT THIS TIME. PT DENIES PRESENCE OF NUMBNESS/TINGLING TO BUE AND BLE. BILATERAL PEDAL PULSES PALP AND CAP REFILL IS < 3. INCISION NOTED TO LEFT KNEE AND IS WITHOUT REDNESS/DRAINAGE. FREDERICK ARE IN PLACE. BLE SCDS ARE NOTED. INCENTIVE SPIROMETER WITHIN REACH AND ENCOURAGED. PT EDUCATED ON 1500ML FLUID RESTRICTION. PT VERBALIZES UNDERSTANDING. PT DENIES PRESENCE OF DYSPNEA/SOB AT THIS TIME. BED IS IN THE LOWEST POSITION. CALL LIGHT AND BEDSIDE TABLE ARE WITHIN REACH. SIDE RAILS X 2. PT DENIES FURTHER NEEDS. WILL CONT TO MONITOR.
--- NOTE | 2020-08-07 14:02 | NUR ---
PT WITH EPISODE OF URINARY INCONTINENCE. PT IS AAO X 4 AND ANSWERS ALL QUESTIONS APPROPRIATELY. PT STATES "IT IS JUST EASIER TO NOT GET UP". PT ENCOURAGED TO NOTIFY NURSE/SPINNING LATHE OPERATOR HYDRAULIC WHEN URGE TO VOID ARISES AND TO AMBULATE OOB AND USE BATHROOM. PT VERBALIZES UNDERSTANDING. PT REPORTS PAIN TO LEFT KNEE AND LEFT HIP. PRN PAIN MEDICATION ADMINISTERED PER ORDER. SEE EMAR. PT DENIES FURTHER NEEDS. FALL PRECAUTIONS IN PLACE. BED IS IN THE LOWEST POSITION. CALL LIGHT AND BEDSIDE TABLE ARE WITHIN REACH. SIDE RAILS X 2. PT DENIES FUTHER NEEDS. WILL CONT TO MONITOR.
--- NOTE | 2020-08-07 14:49 | NUR ---
PT USES CALL LIGHT FOR ASSISTANCE TO BR. PARTIAL ASSISTANCE USED X 2 PERSON AND WALKER USED. PT AMBULATES TO BR SLOWLY AND C/O PAIN TO LEFT QUAD MUSCLE. PT WITH LARGE VOID AND MEDIUM SIZE FORMED STOOL. PT DENIES PRESENCE OF DIZZINESS UPON POSITION CHANGE. PT ASSISTED BACK TO BED JANNY ALARM IS ON AND WORKING BLE SCDS PLACED AND TURNED ON. INCENTIVE SPIROMETER WITHIN REACH AND ENCOURAGED. PT VERBALIZES UNDERSTANDING AND DENIES FURTHER NEEDS. BED IS IN THE LOWEST POSITION. CALL LIGHT AND BEDSIDE TABLE ARE WITHIN REACH. SIDE RAILS X 2. WILL CONT TO MONITOR.
--- NOTE | 2020-08-07 20:00 | NUR ---
PT SITTING UP IN BED WITHOUT DISTRESS, STATES PAIN IN LEG 11/08. NORCO GIVEN ORDERED. PROVIDED CRANBERRY JUICE. DENIES OTHER NEEDS AT THIS TIME. CL IN REACH
[2020-08-08 00:48] VITALS: BP 118/56
--- NOTE | 2020-08-08 02:00 | NUR ---
PT STATES PAIN 11/08, GAVE NORCO ORDERED. DENIES OTHER NEEDS, CL IN REACH
[2020-08-08 04:00] VITALS: BP 118/53
[2020-08-08 06:51] LABS: BASOPHILS 0.3 % (0-2); EOSINOPHILS 3.5 % (0-7); HEMATOCRIT 36.1 % (36.0-48.0); HEMOGLOBIN 11.6 g/dL (12-16); LYMPHOCYTE ABS# 1.49 10x3/uL (1.18-3.74); LYMPHOCYTES 43.3 % (15-50); MCH 30.4 pg (26.0-34.0); MCHC 32.1 g/dL (31.0-37.0); MCV 94.5 fL (80.0-100.0); MEAN PLATELET VOLUME 10.6 fL (7.4-10.4); MONOCYTES 16.6 % (2-11); NEUTROPHIL ABS# 1.25 10x3/uL (1.56-6.13); NEUTROPHILS 36.3 % (40-80); PLATELET COUNT 239 10x3/uL (130-400); RBC 3.82 10x6/uL (4.00-5.40); RDW 14.9 % (11.5-14.5); WBC 3.4 10x3/uL (4.8-10.8)
[2020-08-08 07:09] LABS: ALBUMIN 3.3 g/dL (3.4-5.0); ANION GAP 14.4 mmol/L (8-16); BILIRUBIN - TOTAL 0.45 mg/dL (0.2-1.3); CARBON DIOXIDE 26.3 mmol/L (21.0-32.0); MAGNESIUM - SERUM 1.7 mg/dL (1.8-2.4); POTASSIUM - SERUM 3.7 mmol/L (3.5-5.1); PROTEIN - SERUM 6.6 g/dL (6.4-8.2)
--- NOTE | 2020-08-08 07:26 | NUR ---
ALERT AND ORIENTED. ASSESSMENT COMPLETE. DENIES NEEDS. BED LOW. CALL [place] AND PERSONAL ITEMS IN REACH. WILL CONTINUE TO MONITOR.
[2020-08-08 08:34] VITALS: BP 140/58
[2020-08-08 13:06] VITALS: BP 112/25
[2020-08-08 17:11] VITALS: BP 118/52
[2020-08-08 19:40] VITALS: BP 113/53
--- NOTE | 2020-08-09 00:40 | NUR ---
I have reviewed this patient and I concur with the Shift Assessment completed by the Licensed Practical Nurse today this shift.
[2020-08-09 00:54] VITALS: BP 117/48
[2020-08-09 05:00] VITALS: BP 112/47
[2020-08-09 07:17] LABS: ALKALINE PHOSPHATASE 180 U/L (30-120); ALT (SGPT) 22 U/L (10-68); BILIRUBIN - TOTAL 0.36 mg/dL (0.2-1.3); CALCIUM 8.8 mg/dL (8.5-10.1); CARBON DIOXIDE 28.5 mmol/L (21.0-32.0); CHLORIDE - SERUM 103 mmol/L (98-107); GLUCOSE 124 mg/dL (74-106); MAGNESIUM - SERUM 1.7 mg/dL (1.8-2.4); PROTEIN - SERUM 6.3 g/dL (6.4-8.2); SODIUM 137 mmol/L (136-145)
[2020-08-09 07:39] LABS: BASOPHILS 0.3 % (0-2); EOSINOPHILS 3.7 % (0-7); HEMATOCRIT 34.3 % (36.0-48.0); HEMOGLOBIN 11.2 g/dL (12-16); IMMATURE GRANULOCYTES 0.3 % (0-5); LYMPHOCYTE ABS# 1.21 10x3/uL (1.18-3.74); LYMPHOCYTES 34.8 % (15-50); MCH 30.7 pg (26.0-34.0); MCHC 32.7 g/dL (31.0-37.0); MEAN PLATELET VOLUME 10.5 fL (7.4-10.4); MONOCYTES 12.9 % (2-11); NEUTROPHIL ABS# 1.67 10x3/uL (1.56-6.13); PLATELET COUNT 213 10x3/uL (130-400); RBC 3.65 10x6/uL (4.00-5.40); RDW 14.6 % (11.5-14.5); WBC 3.5 10x3/uL (4.8-10.8)
--- NOTE | 2020-08-09 07:41 | NUR ---
RESTING IN BED WITH EYES CLOSED, EASILY AROUSED TO SPEECH. ALERT AND ORIENTED WITH NO CURRENT S/S OF DISTRESS. PUREWICK PRESENT. NO IV ACCESS. DENIES NEEDS AT THIS TIME, WILL CONT TO MONITOR.
[2020-08-09 07:52] LABS: CALC OSMOLALITY 274 mosm/kg (275-300)
[2020-08-09 07:53] LABS: CREATININE - SERUM 0.7 mg/dL (0.6-1.3); UREA NITROGEN 13 mg/dL (7-18); eGFR NON AFRICAN AMERICAN 87 mL/min (90-120)
[2020-08-09 08:13] VITALS: BP 156/81
[2020-08-09 11:31] VITALS: BP 122/58
--- NOTE | 2020-08-09 16:22 | NUR ---
REHAB PRESCREENING Rehab referral received and chart reviewed. This patient did recently complete a rehab stay, progressed well and discharged to home. She is currently ambulating 70 feet. She will need an OT evaluation in order to assess admission criteria is met. Thank you for this referral! Joselyn Jenkins, SET UP / OPERATOR Rehab PD
[2020-08-09 17:06] VITALS: BP 126/78
[2020-08-09 20:00] VITALS: BP 107/55
[2020-08-10] VITALS: BP 98/55
--- NOTE | 2020-08-10 00:15 | NUR ---
I have reviewed this patient and I concur with the Shift Assessment completed by the Licensed Practical Nurse today this shift.
[2020-08-10 04:00] VITALS: BP 101/48
[2020-08-10 06:05] LABS: BASOPHILS 0.5 % (0-2); EOSINOPHILS 4.9 % (0-7); HEMOGLOBIN 10.8 g/dL (12-16); IMMATURE GRANULOCYTES 0.3 % (0-5); LYMPHOCYTE ABS# 1.51 10x3/uL (1.18-3.74); LYMPHOCYTES 40.9 % (15-50); MCH 29.9 pg (26.0-34.0); MCHC 31.8 g/dL (31.0-37.0); MCV 94.2 fL (80.0-100.0); MEAN PLATELET VOLUME 10.4 fL (7.4-10.4); MONOCYTES 13.3 % (2-11); NEUTROPHIL ABS# 1.48 10x3/uL (1.56-6.13); NEUTROPHILS 40.1 % (40-80); PLATELET COUNT 211 10x3/uL (130-400); RBC 3.61 10x6/uL (4.00-5.40); RDW 14.7 % (11.5-14.5); WBC 3.7 10x3/uL (4.8-10.8)
[2020-08-10 06:31] LABS: ANION GAP 7.2 mmol/L (8-16); BILIRUBIN - TOTAL 0.42 mg/dL (0.2-1.3); CALCIUM 8.7 mg/dL (8.5-10.1); CARBON DIOXIDE 29.5 mmol/L (21.0-32.0); CREATININE - SERUM 0.8 mg/dL (0.6-1.3); MAGNESIUM - SERUM 1.6 mg/dL (1.8-2.4); POTASSIUM - SERUM 3.7 mmol/L (3.5-5.1); PROTEIN - SERUM 6.1 g/dL (6.4-8.2)
--- NOTE | 2020-08-10 07:26 | NUR ---
RECIEVED BEDSIDE REPORT. IN BED RESTING. DENIES NEEDS AT THIS TIME. BED LOW POSITION, CALL LIGHT IN REACH. WILL CONTINUE TO MONITOR.
[2020-08-10 10:07] VITALS: BP 125/49
--- NOTE | 2020-08-10 11:40 | MORECARE ---
CASE MANAGEMENT DISCHARGE SUMMARY PATIENT: CORNELIA WEBBER UNIT: [id number] ADM DATE: 08/05/20 AGE: 70 : 48 SEX: F ROOM/BED: D.[facility] AUTHOR: HUSSAINDOC PHYSICIAN: REFERRING PHYSICIAN: GERARDO SUNSHINE MD DATE OF SERVICE: 08/10/20 Case Management Discharge Planning Summary DCP REVIEW SUMMARY ANTICIPATED D/C DATE: EXPECTED LOS : CASE STATUS: DCP Initiated INITIAL REVIEW: 08/05/2020 INITIAL REVIEWER: Ion Kahn FINAL DISCHARGE DISPOSITION: : FINAL REVIEWER: FINAL REVIEW DATE: DCP Focus Questions & Answers QUESTION: ANSWER : PATIENT: CORNELIA WEBBER ENCOUNTER: [id number] MEDICAL RECORD#: [id number] ADMISSION DATE: 08/05/2020 DISCHARGE DATE: ATTENDING MD: GERARDO MARTIN : AGE: 70 MARITAL STATUS: M DC PLAN ID: [id number] FACILITY: [facility] PRINTED ON: 08/10/20 11:40 CT All edits/amendments must be made on the electronic document DICTATION DATE: 08/10/20 114 TAP AND DIE MAKER TECHNICIAN: DM 08/10/20 1140 RPT#: [id number] DC DATE: STATUS: ADM IN [facility] [address] [place] [address] END OF REPORT
--- NOTE | 2020-08-10 11:51 | MORECARE ---
CASE MANAGEMENT DISCHARGE SUMMARY PATIENT: CORNELIA WEBBER UNIT: [id number] ADM DATE: 08/05/20 AGE: 70 : 48 SEX: F ROOM/BED: D.2226 AUTHOR: HUSSAIN,DOC PHYSICIAN: REFERRING PHYSICIAN: GERARDO SUNSHINE MD DATE OF SERVICE: 08/10/20 Case Management Discharge Planning Summary COMMENTS ENTERED DATE: 08/10/20 11:46 CT COMMENT TYPE: Discharge Planning REVIEWER: Ion Kahn INPT REHAB VS SNF. CM met with patient to complete DC plan and to evaluate needs. Patient dependent for ADLs and Mobility. Patient lives her spouse, Gutierrez Webber, . Patient stated that their home is safe and has electricity and running water. Patient stated that the home has 2 steps to enter and she is able to manage the steps with assistance. Patient stated that she has no problems paying for medications and she fills her medications at [facility]. Patient stated that her primary physician is Dr. Lizarraga. At discharge, the patient plans to return home with [facility] and feels this is a safe discharge. CM discussed availability of home health, rehab services, and medical equipment. Patient stated that [facility] provides PT services for her. Patient requested that CM speak with her Gutierrez. Telephone call to Gutierrez Webber at 1050 on 10 August 2020. Gutierrez stated that the patient has no one to help her at home and he does not feel that she should DC today. Gutierrez stated that he would like to discuss Assisted Living facilities. CM informed Mr. Webber that assisted living for patients that are more or less for patients that are independent. CM informed Mr. Webber about Long-Term Facilities and inpatient rehab. Mr. Webber stated that he's coming to the hospital to discuss options further. Will await visit. Patient stated that she has a Bedside Commode, Shower Chair, and Walker at home. Patient stated that she would like to speak to her first about inpatient rehab vs SNF. DC IMM delivered, explained, signed by the patient, and placed in chart. Signed form also left with the patient. CM will continue to follow and will assist as needed with dc plans/needs. DCP REVIEW SUMMARY ANTICIPATED D/C DATE: EXPECTED LOS : CASE STATUS: DCP Initiated INITIAL REVIEW: 08/05/2020 INITIAL REVIEWER: Ion Kahn FINAL DISCHARGE DISPOSITION: : FINAL REVIEWER: FINAL REVIEW DATE: DCP Focus Questions & Answers DCP Evaluation QUESTION: ANSWER Patient and/or caregiver agree upon recommended discharge plan? : Yes Family / Caregiver's ability to cope with chronic illness: : a. Adequate (ability to meet patient's medical needs, ensures patient attends medical appts.) Patient's current cognitive status: : *Oriented to person, place, situation, time and present Patient's ability to cope with chronic illness : d. No chronic illness Patient gives permission to discuss discharge plans with: (name, relationship and number) : spouse, Gutierrez Webber, Does the patient have the ability to pay for or attain post discharge needs / services? : Yes Functional screen assessment: : Unable to manage ADLs without immediate ongoing assistance Family / Caregiver's ability to cope with chronic illness: : a. Adequate (ability to meet patient's medical needs, ensures patient attends medical appts.) Physical Status: : Mobility impaired Equipment needed for post hospitalization: : None Is there a likelihood that the patient will require additional services to return to the preadmission environment? : Yes Living Arrangements: : Home with Spouse/Significant Other Partial Dependence, assistance required for: : Ambulation / Mobility Patient with capacity for self-care or can be cared for in same environment as prior to hospitalization? : No Baseline cognitive status: : *Oriented to person, place, situation, time and present Physical environment modification needed / anticipated for discharge: : No Medication Management: : Patient states can read and understand medication labels Medication Management: : Patient states can afford medications Pharmacy name(s): : [facility] Does Patient have transportation to get home and to follow-up medical appointments when discharged from the hospital? : Yes Would patient like to participate in any Care Coordination programs (if applicable): : Not applicable Does the patient have electricity at home? : Yes Does the patient have running water in their house? : Yes Equipment in use: : Walker - Rolling Equipment in use: : Shower Chair Equipment in use: : Bedside Commode Mental health screen: : No mental health history DCP Re-evaluation QUESTION: ANSWER Would patient like to participate in any Care Coordination programs (if applicable): : Not applicable PATIENT: CORNELIA WEBBER ENCOUNTER: [id number] MEDICAL RECORD#: [id number] ADMISSION DATE: 08/05/2020 DISCHARGE DATE: ATTENDING MD: GERARDO MARTIN : AGE: 70 MARITAL STATUS: M DC PLAN ID: [id number] FACILITY: [facility] PRINTED ON: 08/10/20 11:51 CT All edits/amendments must be made on the electronic document DICTATION DATE: 08/10/201150 OBSERVER GRAVITY PROSPECTING: TANIA 08/10/20 115 RPT#: [id number] DC DATE: STATUS: ADM IN [facility] [address] [place] [address] END OF REPORT
--- NOTE | 2020-08-10 14:58 | NUR ---
IN BED RESTING. DENIES NEEDS AT THIS TIME. BED LOW POSITION, CALL LIGHT IN REACH. WILL CONTINUE TO MONITOR.
[2020-08-10 15:00] VITALS: BP 126/45; BP 126/458
[2020-08-10 18:28] VITALS: BP 134/68
--- NOTE | 2020-08-10 18:29 | MORECARE ---
CASE MANAGEMENT DISCHARGE SUMMARY PATIENT: CORNELIA WEBBER UNIT: [id number] ADM DATE: 08/05/20 AGE: 70 : 48 SEX: F ROOM/BED: D.2226 AUTHOR: HUSSAIN,DOC PHYSICIAN: REFERRING PHYSICIAN: GERARDO SUNSHINE MD DATE OF SERVICE: 08/10/20 Case Management Discharge Planning Summary COMMENTS ENTERED DATE: 08/10/20 18:25 CT COMMENT TYPE: Discharge Planning REVIEWER: Ion Kahn Late Entry for 1205. Met with Mr. Webber and patient in room 2226. CM provided a list of Retirement Facilities to Mr. Webber. Mr. Webber stated that he would like to look the list over and do some internet searches as well as physically visit the facilities tomorrow. Mr. Webber stated he will call CM team tomorrow with a FELICITAS decision for SNF. CM will continue to follow and will assist as needed with dc plans/needs. ENTERED DATE: 08/10/20 11:46 CT COMMENT TYPE: Discharge Planning REVIEWER: Ion Kahn INPT REHAB VS SNF. CM met with patient to complete DC plan and to evaluate needs. Patient dependent for ADLs and Mobility. Patient lives her spouse, Gutierrez Webber, . Patient stated that their home is safe and has electricity and running water. Patient stated that the home has 2 steps to enter and she is able to manage the steps with assistance. Patient stated that she has no problems paying for medications and she fills her medications at [facility]. Patient stated that her primary physician is Dr. Lizarraga. At discharge, the patient plans to return home with [facility] and feels this is a safe discharge. CM discussed availability of home health, rehab services, and medical equipment. Patient stated that [facility] provides PT services for her. Patient requested that CM speak with her Gutierrez. Telephone call to Gutierrez Webber at 1050 on 10 August 2020. Gutierrez stated that the patient has no one to help her at home and he does not feel that she should DC today. Gutierrez stated that he would like to discuss Assisted Living facilities. CM informed Mr. Webebr that assisted living for patients that are more or less for patients that are independent. CM informed Mr. Webber about Retirement Facilities and inpatient rehab. Mr. Webber stated that he's coming to the hospital to discuss options further. Will await visit. Patient stated that she has a Bedside Commode, Shower Chair, and Walker at home. Patient stated that she would like to speak to her first about inpatient rehab vs SNF. DC IMM delivered, explained, signed by the patient, and placed in chart. Signed form also left with the patient. CM will continue to follow and will assist as needed with dc plans/needs. DCP REVIEW SUMMARY ANTICIPATED D/C DATE: EXPECTED LOS : CASE STATUS: DCP Initiated INITIAL REVIEW: 08/05/2020 INITIAL REVIEWER: Ion Kahn FINAL DISCHARGE DISPOSITION: : FINAL REVIEWER: FINAL REVIEW DATE: DCP Focus Questions & Answers DCP Evaluation QUESTION: ANSWER Family / Caregiver's ability to cope with chronic illness: : a. Adequate (ability to meet patient's medical needs, ensures patient attends medical appts.) Patient gives permission to discuss discharge plans with: (name, relationship and number) : spouse, Gutierrez Webber, Patient's ability to cope with chronic illness : d. No chronic illness Patient's current cognitive status: : *Oriented to person, place, situation, time and present Patient and/or caregiver agree upon recommended discharge plan? : Yes Physical Status: : Mobility impaired Family / Caregiver's ability to cope with chronic illness: : a. Adequate (ability to meet patient's medical needs, ensures patient attends medical appts.) Functional screen assessment: : Unable to manage ADLs without immediate ongoing assistance Does the patient have the ability to pay for or attain post discharge needs / services? : Yes Partial Dependence, assistance required for: : Ambulation / Mobility Living Arrangements: : Home with Spouse/Significant Other Is there a likelihood that the patient will require additional services to return to the preadmission environment? : Yes Equipment needed for post hospitalization: : None Baseline cognitive status: : *Oriented to person, place, situation, time and present Patient with capacity for self-care or can be cared for in same environment as prior to hospitalization? : No Physical environment modification needed / anticipated for discharge: : No Medication Management: : Patient states can afford medications Medication Management: : Patient states can read and understand medication labels Pharmacy name(s): : [facility] Does Patient have transportation to get home and to follow-up medical appointments when discharged from the hospital? : Yes Would patient like to participate in any Care Coordination programs (if applicable): : Not applicable Does the patient have electricity at home? : Yes Does the patient have running water in their house? : Yes Equipment in use: : Bedside Commode Equipment in use: : Shower Chair Equipment in use: : Walker - Rolling Mental health screen: : No mental health history DCP Re-evaluation QUESTION: ANSWER Would patient like to participate in any Care Coordination programs (if applicable): : Not applicable PATIENT: CORNELIA WEBBER ENCOUNTER: [id number] MEDICAL RECORD#: [id number] ADMISSION DATE: 08/05/2020 DISCHARGE DATE: ATTENDING MD: GERARDO MARTIN : AGE: 70 MARITAL STATUS: M DC PLAN ID: [id number] FACILITY: [facility] PRINTED ON: 08/10/20 18:29 CT All edits/amendments must be made on the electronic document DICTATION DATE: 08/10/201828 CERTIFIED LACTATION EDUCATOR: TANIA 08/10/201828 RPT#: [id number] DC DATE: STATUS: ADM IN [facility] [address] [place] [address] END OF REPORT
--- NOTE | 2020-08-10 19:30 | NUR ---
CHANGED TOP BLANKET AND SHEET DUE TO URINE LEAKAGE FROM EXTERNAL CATHETER. POSITIONED FOR COMFORT.
[2020-08-10 20:00] VITALS: BP 141/60
[2020-08-11] VITALS: BP 116/57
--- NOTE | 2020-08-11 01:04 | NUR ---
I have reviewed this patient and I concur with the Shift Assessment completed by the Licensed Practical Nurse today this shift.
[2020-08-11 04:00] VITALS: BP 146/54; BP 166/65
--- NOTE | 2020-08-11 07:28 | NUR ---
RECIEVED BEDSIDE REPORT. SLEEPING, AROUSES TO VOICE. DENIES NEEDS AT THIS TIME. FREE FROM SIGNS OF DISTRESS. BED LOW POSITION, CALL LIGHT IN REACH. WILL CONTINUE TO MONITOR.
[2020-08-11 08:02] LABS: ALKALINE PHOSPHATASE 169 U/L (30-120); ALT (SGPT) 20 U/L (10-68); BILIRUBIN - TOTAL 0.37 mg/dL (0.2-1.3); CALC OSMOLALITY 277 mosm/kg (275-300); CALCIUM 8.7 mg/dL (8.5-10.1); CHLORIDE - SERUM 102 mmol/L (98-107); CREATININE - SERUM 0.7 mg/dL (0.6-1.3); GLUCOSE 117 mg/dL (74-106); MAGNESIUM - SERUM 1.7 mg/dL (1.8-2.4); SODIUM 139 mmol/L (136-145); UREA NITROGEN 10 mg/dL (7-18); eGFR NON AFRICAN AMERICAN 87 mL/min (90-120)
[2020-08-11 08:07] LABS: BASOPHILS 0.3 % (0-2); EOSINOPHILS 4.1 % (0-7); HEMATOCRIT 33.9 % (36.0-48.0); IMMATURE GRANULOCYTES 0.3 % (0-5); LYMPHOCYTE ABS# 1.48 10x3/uL (1.18-3.74); LYMPHOCYTES 40.2 % (15-50); MCH 30.7 pg (26.0-34.0); MCHC 32.4 g/dL (31.0-37.0); MCV 94.7 fL (80.0-100.0); MEAN PLATELET VOLUME 10.2 fL (7.4-10.4); MONOCYTES 12.2 % (2-11); NEUTROPHIL ABS# 1.58 10x3/uL (1.56-6.13); NEUTROPHILS 42.9 % (40-80); PLATELET COUNT 194 10x3/uL (130-400); RBC 3.58 10x6/uL (4.00-5.40); RDW 14.7 % (11.5-14.5); WBC 3.7 10x3/uL (4.8-10.8)
[2020-08-11 10:41] VITALS: BP 128/54
[2020-08-11 13:41] VITALS: Ht 154.9 cm; Wt 71.1 kg
[2020-08-11 15:25] VITALS: BP 128/54
--- NOTE | 2020-08-11 16:33 | NUR ---
PRESCREEN COMPLETED. CASE DISCUSSED WITH THE BOARD OF DIRECTORS. AT THIS TIME IT IS NOT FELT THAT THE PATIENT IS GOING TO REQUIRE 3 HOURS OF INTENSIVE THERAPY 5 DAYS A WEEK, NOR IS SHE GOING TO REQUIRE TO BE SEEN BY THE REHAB TIE BUCKER 3-5 TIMES A WEEK. THEREFORE WE ARE GOING TO HAVE TO DECLINE HER COMING TO OUR UNIT. I HAVE DISCUSSED THIS WITH MARCY JOSHUA RN CM. THANK YOU AGAIN FOR THIS REFERRAL. GURJIT MOYER RN CLINICAL LIAISON, INPATIENT UNIT.
[2020-08-11 18:35] VITALS: BP 125/47
[2020-08-11 20:00] VITALS: BP 138/75
[2020-08-12 04:00] VITALS: BP 119/62
[2020-08-12 05:28] LABS: BASOPHILS 0.3 % (0-2); EOSINOPHILS 5.2 % (0-7); HEMATOCRIT 34.6 % (36.0-48.0); HEMOGLOBIN 11.1 g/dL (12-16); LYMPHOCYTE ABS# 1.43 10x3/uL (1.18-3.74); LYMPHOCYTES 39.4 % (15-50); MCH 30.2 pg (26.0-34.0); MCHC 32.1 g/dL (31.0-37.0); MCV 94.3 fL (80.0-100.0); MEAN PLATELET VOLUME 10.6 fL (7.4-10.4); MONOCYTES 10.2 % (2-11); NEUTROPHIL ABS# 1.63 10x3/uL (1.56-6.13); NEUTROPHILS 44.9 % (40-80); PLATELET COUNT 179 10x3/uL (130-400); RBC 3.67 10x6/uL (4.00-5.40); RDW 14.4 % (11.5-14.5); WBC 3.6 10x3/uL (4.8-10.8)
--- NOTE | 2020-08-12 05:33 | NUR ---
I have reviewed this patient and I concur with the Shift Assessment completed by the Licensed Practical Nurse today this shift.
[2020-08-12 05:48] LABS: ALKALINE PHOSPHATASE 163 U/L (30-120); ALT (SGPT) 21 U/L (10-68); BILIRUBIN - TOTAL 0.39 mg/dL (0.2-1.3); CALC OSMOLALITY 273 mosm/kg (275-300); CARBON DIOXIDE 30.5 mmol/L (21.0-32.0); CHLORIDE - SERUM 100 mmol/L (98-107); CREATININE - SERUM 0.7 mg/dL (0.6-1.3); GLUCOSE 116 mg/dL (74-106); PROTEIN - SERUM 6.3 g/dL (6.4-8.2); SODIUM 137 mmol/L (136-145); UREA NITROGEN 11 mg/dL (7-18); eGFR NON AFRICAN AMERICAN 87 mL/min (90-120)
--- NOTE | 2020-08-12 07:00 | NUR ---
PT SITTING UP IN BED WITH EYES CLOSED. RESP EVEN AND UNLABORED. PT AWAKENS STAFF IS GIVING BEDSIDE REPORT. PT REPORTS PAIN 6/10 AT THIS TIME. DENIES FURTHER NEEDS AT THIS TIME. CL WITHIN REACH. ENCOURAGED TO CALL WITH NEEDS. CONTINUE POC
[2020-08-12 08:50] VITALS: BP 128/62
--- NOTE | 2020-08-12 09:13 | MORECARE ---
CASE MANAGEMENT DISCHARGE SUMMARY PATIENT: CORNELIA WEBBER UNIT: [id number] ADM DATE: 08/05/20 AGE: 70 : 48 SEX: F ROOM/BED: D.2226 AUTHOR: HUSSAIN,DOC PHYSICIAN: REFERRING PHYSICIAN: GERARDO SUNSHINE MD DATE OF SERVICE: 08/12/20 Case Management Discharge Planning Summary COMMENTS ENTERED DATE: 08/12/20 9:09 CT COMMENT TYPE: Discharge Planning REVIEWER: Chanell Enriquez Inpatient rehab [facility] declined patient for their unit, I spoke with patient yesterday and [place] is their second option. I am faxing referral now. ENTERED DATE: 08/10/20 18:25 CT COMMENT TYPE: Discharge Planning REVIEWER: Ion Kahn Late Entry for 1205. Met with Mr. Webber and patient in room 2226. CM provided a list of Penitentiary Facilities to Mr. Webber. Mr. Webber stated that he would like to look the list over and do some internet searches as well as physically visit the facilities tomorrow. Mr. Webber stated he will call CM team tomorrow with a FELICITAS decision for SNF. CM will continue to follow and will assist as needed with dc plans/needs. ENTERED DATE: 08/10/20 11:46 CT COMMENT TYPE: Discharge Planning REVIEWER: Ion Kahn INPT REHAB VS SNF. CM met with patient to complete DC plan and to evaluate needs. Patient dependent for ADLs and Mobility. Patient lives her spouse, Gutierrez Webber, . Patient stated that their home is safe and has electricity and running water. Patient stated that the home has 2 steps to enter and she is able to manage the steps with assistance. Patient stated that she has no problems paying for medications and she fills her medications at [facility]. Patient stated that her primary physician is Dr. Lizarraga. At discharge, the patient plans to return home with [facility] and feels this is a safe discharge. CM discussed availability of home health, rehab services, and medical equipment. Patient stated that [place] provides PT services for her. Patient requested that CM speak with her Gutierrez. Telephone call to Gutierrez Webber at 1050 on 10 August 2020. Gutierrez stated that the patient has no one to help her at home and he does not feel that she should DC today. Gutierrez stated that he would like to discuss Assisted Living facilities. CM informed Mr. Webber that assisted living for patients that are more or less for patients that are independent. CM informed Mr. Webber about Penitentiary Facilities and inpatient rehab. Mr. Webber stated that he's coming to the hospital to discuss options further. Will await visit. Patient stated that she has a Bedside Commode, Shower Chair, and Walker at home. Patient stated that she would like to speak to her first about inpatient rehab vs SNF. DC IMM delivered, explained, signed by the patient, and placed in chart. Signed form also left with the patient. CM will continue to follow and will assist as needed with dc plans/needs. DCP REVIEW SUMMARY ANTICIPATED D/C DATE: EXPECTED LOS : CASE STATUS: DCP Initiated INITIAL REVIEW: 08/05/2020 INITIAL REVIEWER: Ion Kahn FINAL DISCHARGE DISPOSITION: : FINAL REVIEWER: FINAL REVIEW DATE: DCP Focus Questions & Answers DCP Evaluation QUESTION: ANSWER Patient and/or caregiver agree upon recommended discharge plan? : Yes Family / Caregiver's ability to cope with chronic illness: : a. Adequate (ability to meet patient's medical needs, ensures patient attends medical appts.) Patient's current cognitive status: : *Oriented to person, place, situation, time and present Patient's ability to cope with chronic illness : d. No chronic illness Patient gives permission to discuss discharge plans with: (name, relationship and number) : spouse, Gutierrez Webber, Does the patient have the ability to pay for or attain post discharge needs / services? : Yes Functional screen assessment: : Unable to manage ADLs without immediate ongoing assistance Family / Caregiver's ability to cope with chronic illness: : a. Adequate (ability to meet patient's medical needs, ensures patient attends medical appts.) Physical Status: : Mobility impaired Equipment needed for post hospitalization: : None Is there a likelihood that the patient will require additional services to return to the preadmission environment? : Yes Living Arrangements: : Home with Spouse/Significant Other Partial Dependence, assistance required for: : Ambulation / Mobility Patient with capacity for self-care or can be cared for in same environment as prior to hospitalization? : No Baseline cognitive status: : *Oriented to person, place, situation, time and present Physical environment modification needed / anticipated for discharge: : No Medication Management: : Patient states can read and understand medication labels Medication Management: : Patient states can afford medications Pharmacy name(s): : [facility] Does Patient have transportation to get home and to follow-up medical appointments when discharged from the hospital? : Yes Would patient like to participate in any Care Coordination programs (if applicable): : Not applicable Does the patient have electricity at home? : Yes Does the patient have running water in their house? : Yes Equipment in use: : Walker - Rolling Equipment in use: : Shower Chair Equipment in use: : Bedside Commode Mental health screen: : No mental health history DCP Re-evaluation QUESTION: ANSWER Would patient like to participate in any Care Coordination programs (if applicable): : Not applicable PROVIDER NETWORKING REVIEW DATE: 08/12/2020 SERVICE TYPE: Penitentiary Facility REVIEWER: Chanell Enriquez PATIENT: CORNELIA WEBBER ENCOUNTER: [id number] MEDICAL RECORD#: [id number] ADMISSION DATE: 08/05/2020 DISCHARGE DATE: ATTENDING MD: GERARDO MARTIN : AGE: 70 MARITAL STATUS: M DC PLAN ID: [id number] FACILITY: [facility] PRINTED ON: 08/12/20 9:12 CT All edits/amendments must be made on the electronic document DICTATION DATE: 08/12/20911 STACKING MACHINE OPERATOR: DM 08/12/20911 RPT#: [id number] DC DATE: STATUS: ADM IN [facility] [address] [place] [address] END OF REPORT
--- NOTE | 2020-08-12 09:35 | MORECARE ---
CASE MANAGEMENT DISCHARGE SUMMARY PATIENT: CORNELIA WEBBER UNIT: [id number] ADM DATE: 08/05/20 AGE: 70 : 48 SEX: F ROOM/BED: D.2226 AUTHOR: HUSSAIN,DOC PHYSICIAN: REFERRING PHYSICIAN: GERARDO SUNSHINE MD DATE OF SERVICE: 08/12/20 Case Management Discharge Planning Summary COMMENTS ENTERED DATE: 08/12/20 9:09 CT COMMENT TYPE: Discharge Planning REVIEWER: Chanell Enriquez Inpatient rehab [facility] declined patient for their unit, I spoke with patient yesterday and [place] is their second option. I am faxing referral now. ENTERED DATE: 08/10/20 18:25 CT COMMENT TYPE: Discharge Planning REVIEWER: Ion Kahn Late Entry for 1205. Met with Mr. Webber and patient in room 2226. CM provided a list of Senior Care Facilities to Mr. Webber. Mr. Webber stated that he would like to look the list over and do some internet searches as well as physically visit the facilities tomorrow. Mr. Webber stated he will call CM team tomorrow with a FELICITAS decision for SNF. CM will continue to follow and will assist as needed with dc plans/needs. ENTERED DATE: 08/10/20 11:46 CT COMMENT TYPE: Discharge Planning REVIEWER: Ion Kahn INPT REHAB VS SNF. CM met with patient to complete DC plan and to evaluate needs. Patient dependent for ADLs and Mobility. Patient lives her spouse, Gutierrez Webber, . Patient stated that their home is safe and has electricity and running water. Patient stated that the home has 2 steps to enter and she is able to manage the steps with assistance. Patient stated that she has no problems paying for medications and she fills her medications at [facility]. Patient stated that her primary physician is Dr. Lizarraga. At discharge, the patient plans to return home with [facility] and feels this is a safe discharge. CM discussed availability of home health, rehab services, and medical equipment. Patient stated that [place] provides PT services for her. Patient requested that CM speak with her Gutierrez. Telephone call to Gutierrez Webber at 1050 on 10 August 2020. Gutierrez stated that the patient has no one to help her at home and he does not feel that she should DC today. Gutierrez stated that he would like to discuss Assisted Living facilities. CM informed Mr. Webber that assisted living for patients that are more or less for patients that are independent. CM informed Mr. Webber about Senior Care Facilities and inpatient rehab. Mr. Webber stated that he's coming to the hospital to discuss options further. Will await visit. Patient stated that she has a Bedside Commode, Shower Chair, and Walker at home. Patient stated that she would like to speak to her first about inpatient rehab vs SNF. DC IMM delivered, explained, signed by the patient, and placed in chart. Signed form also left with the patient. CM will continue to follow and will assist as needed with dc plans/needs. DCP REVIEW SUMMARY ANTICIPATED D/C DATE: EXPECTED LOS : CASE STATUS: DCP Initiated INITIAL REVIEW: 08/05/2020 INITIAL REVIEWER: Ion Kahn FINAL DISCHARGE DISPOSITION: : FINAL REVIEWER: FINAL REVIEW DATE: DCP Focus Questions & Answers DCP Evaluation QUESTION: ANSWER Patient and/or caregiver agree upon recommended discharge plan? : Yes Family / Caregiver's ability to cope with chronic illness: : a. Adequate (ability to meet patient's medical needs, ensures patient attends medical appts.) Patient's current cognitive status: : *Oriented to person, place, situation, time and present Patient's ability to cope with chronic illness : d. No chronic illness Patient gives permission to discuss discharge plans with: (name, relationship and number) : spouse, Gutierrez Webber, Does the patient have the ability to pay for or attain post discharge needs / services? : Yes Functional screen assessment: : Unable to manage ADLs without immediate ongoing assistance Family / Caregiver's ability to cope with chronic illness: : a. Adequate (ability to meet patient's medical needs, ensures patient attends medical appts.) Physical Status: : Mobility impaired Equipment needed for post hospitalization: : None Is there a likelihood that the patient will require additional services to return to the preadmission environment? : Yes Living Arrangements: : Home with Spouse/Significant Other Partial Dependence, assistance required for: : Ambulation / Mobility Patient with capacity for self-care or can be cared for in same environment as prior to hospitalization? : No Baseline cognitive status: : *Oriented to person, place, situation, time and present Physical environment modification needed / anticipated for discharge: : No Medication Management: : Patient states can read and understand medication labels Medication Management: : Patient states can afford medications Pharmacy name(s): : [facility] Does Patient have transportation to get home and to follow-up medical appointments when discharged from the hospital? : Yes Would patient like to participate in any Care Coordination programs (if applicable): : Not applicable Does the patient have electricity at home? : Yes Does the patient have running water in their house? : Yes Equipment in use: : Walker - Rolling Equipment in use: : Shower Chair Equipment in use: : Bedside Commode Mental health screen: : No mental health history DCP Re-evaluation QUESTION: ANSWER Would patient like to participate in any Care Coordination programs (if applicable): : Not applicable PROVIDER NETWORKING REVIEW DATE: 08/12/2020 SERVICE TYPE: Senior Care Facility REVIEWER: Chanell Enriquez PATIENT: CORNELIA WEBBER ENCOUNTER: [id number] MEDICAL RECORD#: [id number] ADMISSION DATE: 08/05/2020 DISCHARGE DATE: ATTENDING MD: GERARDO MARTIN : AGE: 70 MARITAL STATUS: M DC PLAN ID: [id number] FACILITY: [facility] PRINTED ON: 08/12/20 9:35 CT All edits/amendments must be made on the electronic document DICTATION DATE: 08/12/20934 MANAGEMENT RECRUITER: DM 08/12/20934 RPT#: [id number] DC DATE: STATUS: ADM IN [facility] [address] [place] [address] END OF REPORT
[2020-08-12 13:10] VITALS: BP 104/55
--- NOTE | 2020-08-12 16:00 | NUR ---
OT NOTE: PT COMPLETED BED MOB WITH MIN A. PT COMPLETED UB HYGIENE BATHING TASKS WITH MIN A. PT REQUIRED MAX A FOR LB HYGIENE TASKS. PT COMPLETED SIT TO STAND WITH CGA-MIN A. PT COMPLETED ADL MOB WITH CGA-MIN A. [phone] THANK YOU,TORY ROBBINS
[2020-08-12 17:09] VITALS: BP 134/51
[2020-08-12 20:00] VITALS: BP 129/53
--- NOTE | 2020-08-13 02:16 | NUR ---
I have reviewed this patient and I concur with the Shift Assessment completed by the Licensed Practical Nurse today this shift.
[2020-08-13 04:00] VITALS: BP 150/61
[2020-08-13 06:43] LABS: BASOPHILS 0.3 % (0-2); EOSINOPHILS 4.9 % (0-7); HEMATOCRIT 34.9 % (36.0-48.0); HEMOGLOBIN 11.3 g/dL (12-16); IMMATURE GRANULOCYTES 0.3 % (0-5); LYMPHOCYTE ABS# 1.15 10x3/uL (1.18-3.74); MCH 30.5 pg (26.0-34.0); MCHC 32.4 g/dL (31.0-37.0); MCV 94.1 fL (80.0-100.0); MEAN PLATELET VOLUME 10.5 fL (7.4-10.4); MONOCYTES 11.5 % (2-11); NEUTROPHIL ABS# 1.74 10x3/uL (1.56-6.13); PLATELET COUNT 177 10x3/uL (130-400); RBC 3.71 10x6/uL (4.00-5.40); RDW 14.4 % (11.5-14.5); WBC 3.5 10x3/uL (4.8-10.8)
[2020-08-13 06:49] LABS: ANION GAP 9.2 mmol/L (8-16); BILIRUBIN - TOTAL 0.41 mg/dL (0.2-1.3); CALCIUM 9.2 mg/dL (8.5-10.1); CARBON DIOXIDE 30.8 mmol/L (21.0-32.0); CREATININE - SERUM 0.8 mg/dL (0.6-1.3); MAGNESIUM - SERUM 1.8 mg/dL (1.8-2.4); PROTEIN - SERUM 6.3 g/dL (6.4-8.2)
--- NOTE | 2020-08-13 08:24 | NUR ---
PT LAYING IN BED WATCHING TV, MEDS GIVEN, DISCUSSED GOALS FOR THE DAY, PT TO GET UP FOR MEALS AND GO FOR WALKS AND INCREASE IS VOLUME TO 1250, PT STATES SHE HAS BEEN WAITING FOR SOMEONE TO COME GET HER UP FOR WALKS, INFORMED PT THAT SHE DID NOT NEED TO WAIT THAT ANY OF THE AIDS OR NURSES COULD HELP HER AND THAT WE DID NOT HAVE TO WAIT FOR PT. PT VERBALIZED UNDERSTANDING. PT IS PLEASANT, SAVES HER MEDICINE CUPS FOR JELLO SHOTS WHEN SHE GETS HOME
[2020-08-13 08:56] VITALS: BP 149/54
--- NOTE | 2020-08-13 10:58 | NUR ---
PT WALKING IN BOO WITH PT
--- NOTE | 2020-08-13 11:19 | NUR ---
PT BACK TO ROOM, PT ASSISTED BACK TO BED BY PT, PT STATES PAIN 12/09, PAIN MEDICATION GIVEN, PUREWICK IN PLACE, LIGHTS DIMMED, PT HAS NO FURTHER NEEDS AT THIS TIME
--- NOTE | 2020-08-13 12:06 | MORECARE ---
CASE MANAGEMENT DISCHARGE SUMMARY PATIENT: CORNELIA WEBBER UNIT: [id number] ADM DATE: 08/05/20 AGE: 70 : 48 SEX: F ROOM/BED: D.2226 AUTHOR: HUSSAIN,DOC PHYSICIAN: REFERRING PHYSICIAN: GERARDO SUNSHINE MD DATE OF SERVICE: 08/13/20 Case Management Discharge Planning Summary COMMENTS ENTERED DATE: 08/13/20 11:57 CT COMMENT TYPE: Discharge Planning REVIEWER: Chanell Zoe FORMS FAXED TO [facility], WAITING RESPONSE. [facility] WILL NEED THE [facility] BACK BEFORE THEY CAN ACCEPT HER. CM TO FOLLOW AND ASSIST NEEDED. ENTERED DATE: 08/12/20 9:09 CT COMMENT TYPE: Discharge Planning REVIEWER: Chanell Enriquez Inpatient rehab [facility] declined patient for their unit, I spoke with patient yesterday and [place] is their second option. I am faxing referral now. ENTERED DATE: 08/10/20 18:25 CT COMMENT TYPE: Discharge Planning REVIEWER: Ion Kahn Late Entry for 1205. Met with Mr. Webber and patient in room 2226. CM provided a list of Residential Facilities to Mr. Webber. Mr. Webber stated that he would like to look the list over and do some internet searches as well as physically visit the facilities tomorrow. Mr. Webber stated he will call CM team tomorrow with a FELICITAS decision for SNF. CM will continue to follow and will assist as needed with dc plans/needs. ENTERED DATE: 08/10/20 11:46 CT COMMENT TYPE: Discharge Planning REVIEWER: Ion Kahn INPT REHAB VS SNF. CM met with patient to complete DC plan and to evaluate needs. Patient dependent for ADLs and Mobility. Patient lives her spouse, Gutierrez Webber, . Patient stated that their home is safe and has electricity and running water. Patient stated that the home has 2 steps to enter and she is able to manage the steps with assistance. Patient stated that she has no problems paying for medications and she fills her medications at [facility]. Patient stated that her primary physician is Dr. Lizarraga. At discharge, the patient plans to return home with [facility] and feels this is a safe discharge. CM discussed availability of home health, rehab services, and medical equipment. Patient stated that [place] provides PT services for her. Patient requested that CM speak with her Gutierrez. Telephone call to Gutierrez Webber at 1050 on 10 August 2020. Gutierrez stated that the patient has no one to help her at home and he does not feel that she should DC today. Gutierrez stated that he would like to discuss Assisted Living facilities. CM informed Mr. Webber that assisted living for patients that are more or less for patients that are independent. CM informed Mr. Webber about Residential Facilities and inpatient rehab. Mr. Webber stated that he's coming to the hospital to discuss options further. Will await visit. Patient stated that she has a Bedside Commode, Shower Chair, and Walker at home. Patient stated that she would like to speak to her first about inpatient rehab vs SNF. DC IMM delivered, explained, signed by the patient, and placed in chart. Signed form also left with the patient. CM will continue to follow and will assist as needed with dc plans/needs. DCP REVIEW SUMMARY ANTICIPATED D/C DATE: EXPECTED LOS : CASE STATUS: DCP Initiated INITIAL REVIEW: 08/05/2020 INITIAL REVIEWER: Ion Kahn FINAL DISCHARGE DISPOSITION: : FINAL REVIEWER: FINAL REVIEW DATE: DCP Focus Questions & Answers DCP Evaluation QUESTION: ANSWER Patient and/or caregiver agree upon recommended discharge plan? : Yes Family / Caregiver's ability to cope with chronic illness: : a. Adequate (ability to meet patient's medical needs, ensures patient attends medical appts.) Patient's current cognitive status: : *Oriented to person, place, situation, time and present Patient's ability to cope with chronic illness : d. No chronic illness Patient gives permission to discuss discharge plans with: (name, relationship and number) : spouse, Gutierrez Webber, Does the patient have the ability to pay for or attain post discharge needs / services? : Yes Functional screen assessment: : Unable to manage ADLs without immediate ongoing assistance Family / Caregiver's ability to cope with chronic illness: : a. Adequate (ability to meet patient's medical needs, ensures patient attends medical appts.) Physical Status: : Mobility impaired Equipment needed for post hospitalization: : None Is there a likelihood that the patient will require additional services to return to the preadmission environment? : Yes Living Arrangements: : Home with Spouse/Significant Other Partial Dependence, assistance required for: : Ambulation / Mobility Patient with capacity for self-care or can be cared for in same environment as prior to hospitalization? : No Baseline cognitive status: : *Oriented to person, place, situation, time and present Physical environment modification needed / anticipated for discharge: : No Medication Management: : Patient states can read and understand medication labels Medication Management: : Patient states can afford medications Pharmacy name(s): : [facility] Does Patient have transportation to get home and to follow-up medical appointments when discharged from the hospital? : Yes Would patient like to participate in any Care Coordination programs (if applicable): : Not applicable Does the patient have electricity at home? : Yes Does the patient have running water in their house? : Yes Equipment in use: : Walker - Rolling Equipment in use: : Shower Chair Equipment in use: : Bedside Commode Mental health screen: : No mental health history DCP Re-evaluation QUESTION: ANSWER Would patient like to participate in any Care Coordination programs (if applicable): : Not applicable PROVIDER NETWORKING REVIEW DATE: 08/12/2020 SERVICE TYPE: Residential Facility REVIEWER: Chanell Enriquez PATIENT: CORNELIA WEBBER ENCOUNTER: [id number] MEDICAL RECORD#: [id number] ADMISSION DATE: 08/05/2020 DISCHARGE DATE: ATTENDING MD: GERARDO MARTIN : AGE: 70 MARITAL STATUS: M DC PLAN ID: [id number] FACILITY: [facility] PRINTED ON: 08/13/20 12:06 CT All edits/amendments must be made on the electronic document DICTATION DATE: 08/13/20 1206 BOOK SHELVER: DM 08/13/20 1206 RPT#: [id number] DC DATE: STATUS: ADM IN [facility] [address] [place] [address] END OF REPORT
[2020-08-13 12:59] VITALS: BP 130/56
--- NOTE | 2020-08-13 17:05 | NUR ---
OT NOTE: PT COMPLETED SUPINE TO SIT WITH SBA. PT COMPLETED ADL MOB TO TOILET WITH CGA. PT COMPLETED TOILETING TASKS WITH SBA. PT COMPLETED SITTING AT EOB WITH SBA. PT COMPLETED SIT TO STAND WITH CGA. [id number] JOSE M SHEPHERD COTA
[2020-08-13 18:03] VITALS: BP 111/81
[2020-08-13 20:00] VITALS: BP 121/57
--- NOTE | 2020-08-13 22:19 | NUR ---
PT IS CURRENTLY RESTING IN BED. COMPLAINTS OF PAIN TO THE RIGHT THIGH AREA. PAIN MEDICATION HAS BEEN GIVEN. PATIENT IS ALERT AND ORIENTED. ABLE TO MAKE WANTS AND NEEDS KNOWN CLEARLY. ON ROOM AIR. NO OTHER COMPLAINTS NOR DISTRESS NOTED AT THIS TIME. BED IN LOWEST POSITION AND CALL LIGHT IN PLACE.
[2020-08-14 04:00] VITALS: BP 130/88
[2020-08-14 06:25] LABS: BASOPHILS 0.3 % (0-2); EOSINOPHILS 4.6 % (0-7); HEMATOCRIT 33.7 % (36.0-48.0); HEMOGLOBIN 10.9 g/dL (12-16); LYMPHOCYTE ABS# 1.58 10x3/uL (1.18-3.74); LYMPHOCYTES 45.8 % (15-50); MCH 30.4 pg (26.0-34.0); MCHC 32.3 g/dL (31.0-37.0); MCV 93.9 fL (80.0-100.0); MEAN PLATELET VOLUME 11.2 fL (7.4-10.4); MONOCYTES 11.6 % (2-11); NEUTROPHILS 37.7 % (40-80); PLATELET COUNT 177 10x3/uL (130-400); RBC 3.59 10x6/uL (4.00-5.40); RDW 14.4 % (11.5-14.5); WBC 3.5 10x3/uL (4.8-10.8)
[2020-08-14 06:42] LABS: ALKALINE PHOSPHATASE 224 U/L (30-120); BILIRUBIN - TOTAL 0.44 mg/dL (0.2-1.3); CALC OSMOLALITY 278 mosm/kg (275-300); CARBON DIOXIDE 28.6 mmol/L (21.0-32.0); CHLORIDE - SERUM 102 mmol/L (98-107); CREATININE - SERUM 0.7 mg/dL (0.6-1.3); GLUCOSE 135 mg/dL (74-106); MAGNESIUM - SERUM 1.8 mg/dL (1.8-2.4); POTASSIUM - SERUM 3.8 mmol/L (3.5-5.1); PROTEIN - SERUM 6.4 g/dL (6.4-8.2); SODIUM 139 mmol/L (136-145); UREA NITROGEN 10 mg/dL (7-18); eGFR NON AFRICAN AMERICAN 87 mL/min (90-120)
[2020-08-14 06:45] LABS: ALT (SGPT) 53 U/L (10-68)
--- NOTE | 2020-08-14 07:30 | NUR ---
PT IS RESTING IN BED WITH EYES OPEN. RESPIRATIONS ARE EVEN AND UNLABORED. PT IS AAO X 4 AND ANSWERS ALL QUESTIONS APPROPRIATLEY. PT DENIES PRESENCE OF PAIN/N/V AT THIS TIME AND STATES "IT ONLY HURTS BAD WHEN I GET UP AND WALK". SCAR TO LEFT KNEE NOTED. PT WITH PIV ACCESS. PT DENIES PRESENCE OF DYSPNEA/SOB AT THIS TIME. PT DENIES PRESENCE OF NUMBNESS/TINGLING TO BUE AND BLE AT THIS TIME. PT ENCOURAGED TO USE CALL LIGHT AND AMBULATE FOR BATHROOM NEEDS. PT VERBALIZES UNDERSTANDING. FALL PRECAUTIONS IN PLACE. BED IS IN THE LOWEST POSITION. CALL LIGHT AND BEDSIDE TABLE ARE WITHIN REACH. SIDE RAILS X 2. PT DENIES FURTHER NEEDS. ROOM CLOSE TO NURSE STATION. WILL CONT TO MONITOR.
[2020-08-14 08:44] VITALS: BP 142/59
[2020-08-14 09:11] VITALS: BP 154/64
--- NOTE | 2020-08-14 09:58 | MORECARE ---
CASE MANAGEMENT DISCHARGE SUMMARY PATIENT: CORNELIA WEBBER UNIT: [id number] ADM DATE: 08/05/20 AGE: 70 : 48 SEX: F ROOM/BED: D.2226 AUTHOR: HUSSAIN,DOC PHYSICIAN: REFERRING PHYSICIAN: GERARDO SUNSHINE MD DATE OF SERVICE: 08/14/20 Case Management Discharge Planning Summary COMMENTS ENTERED DATE: 08/14/20 9:52 CT COMMENT TYPE: Discharge Planning REVIEWER: Chanell HICKEY CAN TAKE PATIENT TODAY. WE NEED TO CALL THEM WHEN THE DISCHARGE IS IN AND THEY WILL SCHEDULE A COTTON PICKER TIME. ENTERED DATE: 08/13/20 11:57 CT COMMENT TYPE: Discharge Planning REVIEWER: Chanell Enriquez FORMS FAXED TO [facility], WAITING RESPONSE. [facility] WILL NEED THE [facility] BACK BEFORE THEY CAN ACCEPT HER. CM TO FOLLOW AND ASSIST NEEDED. ENTERED DATE: 08/12/20 9:09 CT COMMENT TYPE: Discharge Planning REVIEWER: Chanell Zoe Inpatient rehab [facility] declined patient for their unit, I spoke with patient yesterday and [place] is their second option. I am faxing referral now. ENTERED DATE: 08/10/20 18:25 CT COMMENT TYPE: Discharge Planning REVIEWER: Ion Kahn Late Entry for 1205. Met with Mr. Webber and patient in room 2226. CM provided a list of [facility]ilities to Mr. Webber. Mr. Webber stated that he would like to look the list over and do some internet searches as well as physically visit the facilities tomorrow. Mr. Webber stated he will call CM team tomorrow with a FELICITAS decision for SNF. CM will continue to follow and will assist as needed with dc plans/needs. ENTERED DATE: 08/10/20 11:46 CT COMMENT TYPE: Discharge Planning REVIEWER: Ion Kahn INPT REHAB VS SNF. CM met with patient to complete DC plan and to evaluate needs. Patient dependent for ADLs and Mobility. Patient lives her spouse, Gutierrez Webber, . Patient stated that their home is safe and has electricity and running water. Patient stated that the home has 2 steps to enter and she is able to manage the steps with assistance. Patient stated that she has no problems paying for medications and she fills her medications at [facility]. Patient stated that her primary physician is Dr. Lizarraga. At discharge, the patient plans to return home with [facility] and feels this is a safe discharge. CM discussed availability of home health, rehab services, and medical equipment. Patient stated that [facility] provides PT services for her. Patient requested that CM speak with her Gutierrez. Telephone call to Gutierrez Webber at 1050 on 10 August 2020. Gutierrez stated that the patient has no one to help her at home and he does not feel that she should DC today. Gutierrez stated that he would like to discuss Assisted Living facilities. CM informed Mr. Webber that assisted living for patients that are more or less for patients that are independent. CM informed Mr. Webber about [facility] and inpatient rehab. Mr. Webber stated that he's coming to the hospital to discuss options further. Will await visit. Patient stated that she has a Bedside Commode, Shower Chair, and Walker at home. Patient stated that she would like to speak to her first about inpatient rehab vs SNF. DC IMM delivered, explained, signed by the patient, and placed in chart. Signed form also left with the patient. CM will continue to follow and will assist as needed with dc plans/needs. DCP REVIEW SUMMARY ANTICIPATED D/C DATE: EXPECTED LOS : CASE STATUS: DCP Initiated INITIAL REVIEW: 08/05/2020 INITIAL REVIEWER: Ion Kahn FINAL DISCHARGE DISPOSITION: : FINAL REVIEWER: FINAL REVIEW DATE: DCP Focus Questions & Answers DCP Evaluation QUESTION: ANSWER Patient and/or caregiver agree upon recommended discharge plan? : Yes Family / Caregiver's ability to cope with chronic illness: : a. Adequate (ability to meet patient's medical needs, ensures patient attends medical appts.) Patient's current cognitive status: : *Oriented to person, place, situation, time and present Patient's ability to cope with chronic illness : d. No chronic illness Patient gives permission to discuss discharge plans with: (name, relationship and number) : spouse, Gutierrez Webber, Does the patient have the ability to pay for or attain post discharge needs / services? : Yes Functional screen assessment: : Unable to manage ADLs without immediate ongoing assistance Family / Caregiver's ability to cope with chronic illness: : a. Adequate (ability to meet patient's medical needs, ensures patient attends medical appts.) Physical Status: : Mobility impaired Equipment needed for post hospitalization: : None Is there a likelihood that the patient will require additional services to return to the preadmission environment? : Yes Living Arrangements: : Home with Spouse/Significant Other Partial Dependence, assistance required for: : Ambulation / Mobility Patient with capacity for self-care or can be cared for in same environment as prior to hospitalization? : No Baseline cognitive status: : *Oriented to person, place, situation, time and present Physical environment modification needed / anticipated for discharge: : No Medication Management: : Patient states can read and understand medication labels Medication Management: : Patient states can afford medications Pharmacy name(s): : [facility] Does Patient have transportation to get home and to follow-up medical appointments when discharged from the hospital? : Yes Would patient like to participate in any Care Coordination programs (if applicable): : Not applicable Does the patient have electricity at home? : Yes Does the patient have running water in their house? : Yes Equipment in use: : Walker - Rolling Equipment in use: : Shower Chair Equipment in use: : Bedside Commode Mental health screen: : No mental health history DCP Re-evaluation QUESTION: ANSWER Would patient like to participate in any Care Coordination programs (if applicable): : Not applicable PROVIDER NETWORKING REVIEW DATE: 08/12/2020 SERVICE TYPE: [facility] Facility REVIEWER: Chanell Enriquez PATIENT: CORNELIA EWBBER ENCOUNTER: [id number] MEDICAL RECORD#: [id number] ADMISSION DATE: 08/05/2020 DISCHARGE DATE: ATTENDING MD: GERARDO MARTIN : AGE: 70 MARITAL STATUS: M DC PLAN ID: [id number] FACILITY: [facility] PRINTED ON: 08/14/20 9:58 CT All edits/amendments must be made on the electronic document DICTATION DATE: 08/14/20957 ROVING CARRIER: TANIA 08/14/20957 RPT#: [id number] DC DATE: STATUS: ADM IN [facility] [address] [place] [address] END OF REPORT
--- NOTE | 2020-08-14 11:47 | NUR ---
PT REQUESTS PAIN MEDICATION FOR PAIN RATEDD 7/10 TO LEFT KNEE DESCRIBED ACHING. PT SPOUSE AT BEDSIDE. [facility] TAKEN FOR PAIN MEDICATION AND PT SPOUSE STATES "I CANT BELIEVE THAT YOU ARE LETTING THEM GIVE THAT TO YOU! YOU ARE ADDICTED! YOU DO NOT NEED THAT PAIN MEDICINE". PT REQUESTS TO RETURN [facility] AND ASKS FOR TYLENOL FOR PAIN CONTROL. WILL COMPLY AND ADMINSTER PER ORDER. SEE EMAR. FALL PRECAUTIONS IN PLACE. BED IS IN THE LOWEST POSITION. CALL LIGHT AND BEDSIDE TABLE ARE WITHIN REAHC. SIDE RAILS X 2. PT DENIES FURTHER NEEDS. WILL CONT TO MONITOR.
[2020-08-14 12:58] VITALS: BP 138/70
--- NOTE | 2020-08-14 13:33 | NUR ---
REPORT CALLED TO AMADEO ROMERO LPN AT [facility]. NO FURTHER QUESTIONS. WILL WAIT FOR [facility] TRANSPORT TO ELECTRONIC PAGINATION SYSTEM OPERATOR PATIENT.
--- NOTE | 2020-08-14 13:52 | NUR ---
ALL DISCHARGE INSTRUCTIONS COVERED WITH PT. PT IS AAO X 4 AND ANSWERS ALL QUESTIONS APPROPRIATELY. VERBAL AND WRITTEN DISCHARGE INSTRUCTIONS GIVEN. (1) PRINTED RX GIVEN TO PT. PT DENIES FURTHER QUESTIONS/CONCERNS/NEEDS. PT WITHOUT PIV ACCESS AT THIS TIME. ALL DISCHARGE INSTRUCTIONS SIGNED BY PT AND PLACED IN PT CHART. PT DENIES FURTHER NEEDS. BED IS IN THE LOWEST PSITION. CALL LIGHT AND BEDSIDE TABLE ARE WITHIN REACH. SIDE RAILS X 2. FALL PRECAUTIONS IN PLACE. WILL WAIT FOR [facility] TRANSPORT.
--- NOTE | 2020-08-14 14:15 | NUR ---
[facility] TRANSPORT ON FLOOR. PT ASSISTED TO WHEELCHAIR BY STAND BY ASSIST AND WALKER. PT DENIES FURTHER QUESTIONS/CONCERNS/NEEDS AT THIS TIME. ALL PERSONAL BELONGINGS SENT WITH PT. PT ESCORTED OFF FLOOR VIA WHEELCHAIR BY [facility] TRANSPORT STAFF. PT THANKS THIS NURSE FOR CARE GIVEN DURING THIS SHIFT AND DENIES FURTHER NEEDS.
--- NOTE | 2020-08-14 14:41 | MORECARE ---
CASE MANAGEMENT DISCHARGE SUMMARY PATIENT: CORNELIA WEBBER UNIT: [id number] ADM DATE: 08/05/20 AGE: 70 : 46 SEX: F ROOM/BED: D.2226 AUTHOR: HUSSAIN,DOC PHYSICIAN: REFERRING PHYSICIAN: GERARDO SUNSHINE MD DATE OF SERVICE: 08/14/20 Case Management Discharge Planning Summary COMMENTS ENTERED DATE: 08/14/20 9:52 CT COMMENT TYPE: Discharge Planning REVIEWER: Chanell HICKEY CAN TAKE PATIENT TODAY. WE NEED TO CALL THEM WHEN THE DISCHARGE IS IN AND THEY WILL SCHEDULE A PATIENT CARE SECRETARY TIME. ENTERED DATE: 08/13/20 11:57 CT COMMENT TYPE: Discharge Planning REVIEWER: Chanell Enriquez FORMS FAXED TO [facility], WAITING RESPONSE. EDELMIRA WILL NEED THE [facility] BACK BEFORE THEY CAN ACCEPT HER. CM TO FOLLOW AND ASSIST NEEDED. ENTERED DATE: 08/12/20 9:09 CT COMMENT TYPE: Discharge Planning REVIEWER: Chanell Zoe Inpatient rehab [facility] declined patient for their unit, I spoke with patient yesterday and [facility] is their second option. I am faxing referral now. ENTERED DATE: 08/10/20 18:25 CT COMMENT TYPE: Discharge Planning REVIEWER: Ion Kahn Late Entry for 1205. Met with Mr. Webber and patient in room 2226. CM provided a list of Long-Term Facilities to Mr. Webber. Mr. Webber stated that he would like to look the list over and do some internet searches as well as physically visit the facilities tomorrow. Mr. Webber stated he will call CM team tomorrow with a FELICITAS decision for SNF. CM will continue to follow and will assist as needed with dc plans/needs. ENTERED DATE: 08/10/20 11:46 CT COMMENT TYPE: Discharge Planning REVIEWER: Ion Kahn INPT REHAB VS SNF. CM met with patient to complete DC plan and to evaluate needs. Patient dependent for ADLs and Mobility. Patient lives her spouse, Gutierrez Webber, . Patient stated that their home is safe and has electricity and running water. Patient stated that the home has 2 steps to enter and she is able to manage the steps with assistance. Patient stated that she has no problems paying for medications and she fills her medications at [facility]. Patient stated that her primary physician is Dr. Lizarraga. At discharge, the patient plans to return home with [facility] and feels this is a safe discharge. CM discussed availability of home health, rehab services, and medical equipment. Patient stated that [facility] provides PT services for her. Patient requested that CM speak with her Gutierrez. Telephone call to Gutierrez Webber at 1050 on 10 August 2020. Gutierrez stated that the patient has no one to help her at home and he does not feel that she should DC today. Gutierrez stated that he would like to discuss Assisted Living facilities. CM informed Mr. Webber that assisted living for patients that are more or less for patients that are independent. CM informed Mr. Webber about Long-Term Facilities and inpatient rehab. Mr. Webber stated that he's coming to the hospital to discuss options further. Will await visit. Patient stated that she has a Bedside Commode, Shower Chair, and Walker at home. Patient stated that she would like to speak to her first about inpatient rehab vs SNF. DC IMM delivered, explained, signed by the patient, and placed in chart. Signed form also left with the patient. CM will continue to follow and will assist as needed with dc plans/needs. DCP REVIEW SUMMARY ANTICIPATED D/C DATE: EXPECTED LOS : CASE STATUS: DCP Initiated INITIAL REVIEW: 08/05/2020 INITIAL REVIEWER: Ion Kahn FINAL DISCHARGE DISPOSITION: : FINAL REVIEWER: FINAL REVIEW DATE: DCP Focus Questions & Answers DCP Evaluation QUESTION: ANSWER Patient and/or caregiver agree upon recommended discharge plan? : Yes Family / Caregiver's ability to cope with chronic illness: : a. Adequate (ability to meet patient's medical needs, ensures patient attends medical appts.) Patient's current cognitive status: : *Oriented to person, place, situation, time and present Patient's ability to cope with chronic illness : d. No chronic illness Patient gives permission to discuss discharge plans with: (name, relationship and number) : spouse, Gutierrez Webber, Does the patient have the ability to pay for or attain post discharge needs / services? : Yes Functional screen assessment: : Unable to manage ADLs without immediate ongoing assistance Family / Caregiver's ability to cope with chronic illness: : a. Adequate (ability to meet patient's medical needs, ensures patient attends medical appts.) Physical Status: : Mobility impaired Equipment needed for post hospitalization: : None Is there a likelihood that the patient will require additional services to return to the preadmission environment? : Yes Living Arrangements: : Home with Spouse/Significant Other Partial Dependence, assistance required for: : Ambulation / Mobility Patient with capacity for self-care or can be cared for in same environment as prior to hospitalization? : No Baseline cognitive status: : *Oriented to person, place, situation, time and present Physical environment modification needed / anticipated for discharge: : No Medication Management: : Patient states can read and understand medication labels Medication Management: : Patient states can afford medications Pharmacy name(s): : [facility] Does Patient have transportation to get home and to follow-up medical appointments when discharged from the hospital? : Yes Would patient like to participate in any Care Coordination programs (if applicable): : Not applicable Does the patient have electricity at home? : Yes Does the patient have running water in their house? : Yes Equipment in use: : Walker - Rolling Equipment in use: : Shower Chair Equipment in use: : Bedside Commode Mental health screen: : No mental health history DCP Re-evaluation QUESTION: ANSWER Would patient like to participate in any Care Coordination programs (if applicable): : Not applicable PROVIDER NETWORKING REVIEW DATE: 08/12/2020 SERVICE TYPE: Long-Term Facility REVIEWER: Chanell Enriquez PATIENT: CORNELIA WEBBER ENCOUNTER: [id number] MEDICAL RECORD#: [id number] ADMISSION DATE: 08/05/2020 DISCHARGE DATE: 08/14/2020 ATTENDING MD: GERARDO MARTIN : AGE: 70 MARITAL STATUS: M DC PLAN ID: [id number] FACILITY: [facility] PRINTED ON: 08/14/20 14:41 CT All edits/amendments must be made on the electronic document DICTATION DATE: 08/14/201440 SPORTS MANAGER: TANIA 08/14/201440 RPT#: [id number] DC DATE:08/14/20 STATUS: DIS IN [facility] [address] [place] [address] END OF REPORT
--- NOTE | 2020-08-14 18:11 | NUR ---
OT NOTE: PT COMPLETED ADL MOB WITH RW REQUIRED CGA. PT COMPLETED BED MOB WITH SBA. PT COMPLETED MAME SOCKS WITH MIN A. PT COMPLETED FACE HYGIENE WITH SETUP. PT COMPLETED SIT TO STAND WITH CGA. [phone] [facility]
--- NOTE | 2020-08-15 09:45 | MORECARE ---
CASE MANAGEMENT DISCHARGE SUMMARY PATIENT: CORNELIA WEBBER UNIT: [id number] ADM DATE: 08/05/20 AGE: 70 : 46 SEX: F ROOM/BED: D.2226 AUTHOR: HUSSAIN,DOC PHYSICIAN: REFERRING PHYSICIAN: GERARDO SUNSHINE MD DATE OF SERVICE: 08/15/20 Case Management Discharge Planning Summary COMMENTS ENTERED DATE: 08/14/20 9:52 CT COMMENT TYPE: Discharge Planning REVIEWER: Chanell HICKEY CAN TAKE PATIENT TODAY. WE NEED TO CALL THEM WHEN THE DISCHARGE IS IN AND THEY WILL SCHEDULE A PRINTER'[employer] DEVIL TIME. ENTERED DATE: 08/13/20 11:57 CT COMMENT TYPE: Discharge Planning REVIEWER: Chanell Enriquez FORMS FAXED TO [facility], WAITING RESPONSE. EDELMIRA WILL NEED THE [facility] BACK BEFORE THEY CAN ACCEPT HER. CM TO FOLLOW AND ASSIST NEEDED. ENTERED DATE: 08/12/20 9:09 CT COMMENT TYPE: Discharge Planning REVIEWER: Chanell Zoe Inpatient rehab [facility] declined patient for their unit, I spoke with patient yesterday and [facility] is their second option. I am faxing referral now. ENTERED DATE: 08/10/20 18:25 CT COMMENT TYPE: Discharge Planning REVIEWER: Ion Kahn Late Entry for 1205. Met with Mr. Webber and patient in room 2226. CM provided a list of Assisted Facilities to Mr. Webber. Mr. Webber stated that he would like to look the list over and do some internet searches as well as physically visit the facilities tomorrow. Mr. Webber stated he will call CM team tomorrow with a FELICITAS decision for SNF. CM will continue to follow and will assist as needed with dc plans/needs. ENTERED DATE: 08/10/20 11:46 CT COMMENT TYPE: Discharge Planning REVIEWER: Ion Kahn INPT REHAB VS SNF. CM met with patient to complete DC plan and to evaluate needs. Patient dependent for ADLs and Mobility. Patient lives her spouse, Gutierrez Webber, . Patient stated that their home is safe and has electricity and running water. Patient stated that the home has 2 steps to enter and she is able to manage the steps with assistance. Patient stated that she has no problems paying for medications and she fills her medications at [facility]. Patient stated that her primary physician is Dr. Lizarraga. At discharge, the patient plans to return home with [facility] and feels this is a safe discharge. CM discussed availability of home health, rehab services, and medical equipment. Patient stated that [facility] provides PT services for her. Patient requested that CM speak with her Gutierrez. Telephone call to Gutierrez Webber at 1050 on 10 August 2020. Gutierrez stated that the patient has no one to help her at home and he does not feel that she should DC today. Gutierrez stated that he would like to discuss Assisted Living facilities. CM informed Mr. Webber that assisted living for patients that are more or less for patients that are independent. CM informed Mr. Webber about Assisted Facilities and inpatient rehab. Mr. Webber stated that he's coming to the hospital to discuss options further. Will await visit. Patient stated that she has a Bedside Commode, Shower Chair, and Walker at home. Patient stated that she would like to speak to her first about inpatient rehab vs SNF. DC IMM delivered, explained, signed by the patient, and placed in chart. Signed form also left with the patient. CM will continue to follow and will assist as needed with dc plans/needs. DCP REVIEW SUMMARY ANTICIPATED D/C DATE: EXPECTED LOS : CASE STATUS: DCP Initiated INITIAL REVIEW: 08/05/2020 INITIAL REVIEWER: Ion Kahn FINAL DISCHARGE DISPOSITION: : FINAL REVIEWER: FINAL REVIEW DATE: DCP Focus Questions & Answers DCP Evaluation QUESTION: ANSWER Patient and/or caregiver agree upon recommended discharge plan? : Yes Patient's current cognitive status: : *Oriented to person, place, situation, time and present Patient's ability to cope with chronic illness : d. No chronic illness Patient gives permission to discuss discharge plans with: (name, relationship and number) : spouse, Gutierrez Webber, Family / Caregiver's ability to cope with chronic illness: : a. Adequate (ability to meet patient's medical needs, ensures patient attends medical appts.) Does the patient have the ability to pay for or attain post discharge needs / services? : Yes Functional screen assessment: : Unable to manage ADLs without immediate ongoing assistance Family / Caregiver's ability to cope with chronic illness: : a. Adequate (ability to meet patient's medical needs, ensures patient attends medical appts.) Physical Status: : Mobility impaired Equipment needed for post hospitalization: : None Is there a likelihood that the patient will require additional services to return to the preadmission environment? : Yes Living Arrangements: : Home with Spouse/Significant Other Partial Dependence, assistance required for: : Ambulation / Mobility Patient with capacity for self-care or can be cared for in same environment as prior to hospitalization? : No Baseline cognitive status: : *Oriented to person, place, situation, time and present Physical environment modification needed / anticipated for discharge: : No Medication Management: : Patient states can afford medications Medication Management: : Patient states can read and understand medication labels Pharmacy name(s): : [facility] Does Patient have transportation to get home and to follow-up medical appointments when discharged from the hospital? : Yes Would patient like to participate in any Care Coordination programs (if applicable): : Not applicable Does the patient have electricity at home? : Yes Does the patient have running water in their house? : Yes Equipment in use: : Bedside Commode Equipment in use: : Shower Chair Equipment in use: : Walker - Rolling Mental health screen: : No mental health history DCP Re-evaluation QUESTION: ANSWER Would patient like to participate in any Care Coordination programs (if applicable): : Not applicable PROVIDER NETWORKING REVIEW DATE: 08/12/2020 SERVICE TYPE: Assisted Facility REVIEWER: Chanell Enriquez PATIENT: CORNELIA WEBBER ENCOUNTER: [id number] MEDICAL RECORD#: [id number] ADMISSION DATE: 08/05/2020 DISCHARGE DATE: 08/14/2020 ATTENDING MD: GERARDO MARTIN : AGE: 70 MARITAL STATUS: M DC PLAN ID: [id number] FACILITY: [facility] PRINTED ON: 08/15/20 9:45 CT All edits/amendments must be made on the electronic document DICTATION DATE: 08/15/20944 REFERENCE INVESTIGATOR: TANIA 08/15/20944 RPT#: [id number] DC DATE:08/14/20 STATUS: DIS IN [facility] [address] [place] [address] END OF REPORT
== END 2020-08-14 14:34 | DRG 560 ==
LOC: D.ER 11:10 → D.M2 18:32 → D.MS 18:32 → D.M3 18:32 → D.M2 18:39 → D.EDHOLD 18:48 → D.M3 19:42 → D.MS 08-06 11:02
PROVIDERS: Family Medicine; ADMIT Emergency Medicine; ATTEND Emergency Medicine
DX: T84.84XA Pain due to internal orthopedic prosthetic devices, implants and grafts, initial encounter (principal); E87.1 Hypo-osmolality and hyponatremia; F41.9 Anxiety disorder, unspecified; F32.9 Major depressive disorder, single episode, unspecified; K21.9 Gastro-esophageal reflux disease without esophagitis; Y83.9 Surgical procedure, unspecified as the cause of abnormal reaction of the patient, or of later complication, without mention of misadventure at the time of the procedure; G25.81 Restless legs syndrome; I10 Essential (primary) hypertension; M17.12 Unilateral primary osteoarthritis, left knee; G72.89 Other specified myopathies